=== PATIENT | male | born 1935 | race Caucasian/White ===

== ENCOUNTER 2019-11-14 18:23 | Emergency (ER) | payer MEDICARE, OTHER, SELFPAY ==
--- NOTE | 2019-11-14 18:30 | XR_ITS ---
WS: [id number] PORTABLE CHEST HISTORY: cp COMPARISON: 12/13/2014 LEFT subclavian pacer. Hyperexpanded lungs from emphysema. No pneumonia, normal vasculature. No pleural effusion or pneumoth orax. Cardiac size: Normal. Mediastinum/Aorta: Mild atherosclerosis aorta. Prior LEFT rotator cuff repair. XR/XR chest 1V portable [id number] IMPRESSION: Chronic emphysema and mild atherosclerosis aorta. No acute cardiopulmonary dise ase.
--- NOTE | 2019-11-14 18:30 | ECG_ITS ---
Measurements Intervals [place] Rate: 75 P: 239 IA: 175 QRS: -48 QRSD: 117 T: 81 QT: 373 QTc: 418 ELECTRONIC ATRIAL PACEMAKER LEFT ANTERIOR FASCICULAR BLOCK [QRS AXIS <= -45, QR IN I, RS IN II] NONSPECIFIC ST & T-WAVE ABNORMALITY Compared to ECG 12/13/2014 07:35:22 Left anterior fascicular block now present T-wave abnormality now present Left-axis deviation no longer present Myocardial infarct finding no longer present Electronically Signed On 11-15-2019 16:29:15 CABLE STRETCHER AND TESTER by Jean Castillo M.D. [id number]
[2019-11-14 18:37] VITALS: BP 163/88; PULSE 78; RESP 16; TEMP 36.6; O2SAT 100; BMI 20.5
[2019-11-14 19:23] LABS: Basophils # 0.1 10^3/uL (0.0-0.1); Basophils % 0.8 %; Eosinophils # 0.4 10^3/uL (0.0-0.8); Eosinophils % 3.9 %; Hematocrit 43.3 % (42.0-52.0); Hemoglobin 14.4 g/dL (11.7-16.6); Lymphocytes # 3.1 10^3/uL (0.8-4.8); Mean Corpuscular HGB Conc 33.3 g/dL (30.0-36.0); Mean Corpuscular Hemoglobin 29.8 pg (28.0-34.0); Mean Corpuscular Volume 89.6 fL (80-94); Mean Platelet Volume 11.9 fL (7.4-10.4); Neutrophils # 6.1 10^3/uL (1.8-7.7); Nucleated Red Blood Cells % 0 %; Platelet Count 163 10^3/cmm (130-400); Red Blood Count 4.83 10^6/uL (4.1-5.3); Red Cell Distribution Width 12.7 % (12.1-15.1); White Blood Count 10.7 10^3/uL (4.0-10.0)
[2019-11-14 19:35] LABS: Alanine Aminotransferase 21 U/L (0-41); Albumin Level 4.3 g/dL (3.5-5.2); Alkaline Phosphatase 88 IU/L (40-130); Blood Urea Nitrogen 23 mg/dL (8-23); Calcium 9.7 mg/dL (8.5-10.5); Carbon Dioxide 23 mmol/L (22-29); Chloride 98 mmol/L (98-107); Globulin 2.8 g/dL (1.3-4.6); Glucose 175 mg/dL (65-115); Sodium 136 mmol/L (136-145); Total Bilirubin 0.3 mg/dL (0.15-1.2); Total Protein 7.1 g/dL (6.6-8.7); Troponin(5th) Baseline 16 ng/mL (0-15)
[2019-11-14 19:43] LABS: Slide Review Slide Review Perform
[2019-11-14 20:01] LABS: Aspartate Amino Transferase 27 U/L (0-40)
--- NOTE | 2019-11-14 20:30 | ECG_ITS ---
Measurements Intervals [place] Rate: 76 P: 257 ID: [id number] QRS: -56 QRSD: 122 T: 86 QT: 385 QTc: 435 ELECTRONIC ATRIAL PACEMAKER LEFT ANTERIOR FASCICULAR BLOCK [QRS AXIS <= -45, QR IN I, RS IN II] Compared to ECG 12/13/2014 07:35:22 Left anterior fascicular block now present Left-axis deviation no longer present Myocardial infarct finding no longer present Electronically Signed On 11-15-2019 16:35:08 TRIMMER MACHINE by Jean Castillo M.D. [email or web address]
--- NOTE | 2019-11-14 20:41 | ED_ITS ---
Entered by Orquidea Badillo, acting as scribe for Masha Gee Nov 14, 2019 18:23 HPI - Chest Pain General: Chief Complaint: Chest Pain Stated Complaint: cp Time Seen by Provider: 11/14/19 20:08 Source: patient Mode of arrival: ambulatory Limitations: no limitations History of Present Illness: HPI narrative: 84 yo m came to the er for chest pain. Onset was today. Pt states that they have had sharp pains lasting 1 sec at a time. The pains do not last any longer this. He has no associated radiation, aggravating or alleviating factors, nausea or vomiting, shortness of breath, diaphoresis, palpitations, syncope or near syncope. The patient states it has been approximately 2 hours since she had a pain. He denies any eliciting factors. MD complaint: chest pain Severity: mild Quality: sharp Associated symptoms: Deny abdominal pain, diaphoresis, dyspnea, fever(s), nausea, palpitations, syncope or vomiting Review of Systems General: Reports: other (negative unless marked) Const: Denies: fever, chills, body aches, fatigue, malaise or diaphoresis Eyes: Denies: change in vision or blurry vision ENMT: Denies: throat pain, painful swallowing, hoarseness, ear pain, ear discharge, Change in hearing or nasal discharge Card: Reports: chest pain (See HPI); Denies: palpitations, irregular heart rhythm, syncope, pre-syncope, shortness of breath on exertion or shortness of breath when lying down Resp: Denies: shortness of breath, productive cough, non-productive cough, wheezing, coughing up blood or chest congestion GI: Denies: abdominal pain, nausea, vomiting, vomiting blood, coffee grounds in vomit, diarrhea, constipation, cramping, blood in stool or black tarry stool : Denies: flank pain, difficulty urinating, painful urination, urinary frequency, urinary urgency, decreased urine ouput, urinary incontinence or blood in urine Musc: Denies: neck pain, back pain, extremity pain, extremity swelling, joint pain, joint swelling, joint warmth or joint stiffness Skin/Breast: Denies: rash, skin tenderness or yellow skin Neuro: Denies: headache, numbness in extremities, weakness in extremities, changes in sensation, lack of coordination, difficulty walking, dizziness, vertigo or confusion Endo: Denies: excessive thirst, tired all the time, cold intolerance, excessive sweating, flushing or hot flashes Tyshawn/Lymph: Denies: easy bruising, easy bleeding, petechiae or enlarged lymph nodes All/Imm: Denies: hives, throat swelling, tongue swelling, facial swelling or acute wheezing PFSH ED PFSH: Statuses (acute, chronic, etc) shown below reflect problem list status as previously entered and may not be historically accurate Medical History (Updated 11/14/19 @ 21:39 by Masha Gee) Diabetes (Acute) Heart block (Acute) Hyperlipidemia (Acute) Hypertension (Acute) Peptic ulcer disease (Acute) Social History Smoking and tobacco status: former smoker Physical Exam Const: COMMON NORMALS: no apparent distress, oriented x3, no limitations, healthy appearing and well nourished EXAM LIMITATIONS: no altered mental status GENERAL APPEARANCE: cooperative, well kempt and well developed ORIENTATION/CONSCIOUSNESS: Yes awake HENMT: COMMON NORMALS: normocephalic, head/scalp atraumatic, hearing grossly normal bilaterally, external ears normal, EAC's normal, external nose normal and moist oral mucous membranes HEAD & SCALP: normal to inspection, normocephalic and atraumatic FACE & SINUS: normal facial exam and face symmetric NOSE: external nose normal and nares normal EXTERNAL EAR: Yes external ears normal EXTERNAL AUDITORY CANAL: EAC's normal MOUTH: oral and palatal mucosa normal and tongue normal Eye: COMMON NORMALS: PERRL, EOMs intact bilaterally, conjunctivae normal and no scleral icterus GENERAL EYE: normal appearance of both eyes and normal light reflex CONJUNCTIVA: Yes conjunctivae normal SCLERA: sclerae normal CORNEA: Yes corneas normal PUPIL: Yes PERRL DIRECT OPHTHALMOSCOPY: Yes normal light reflex Neck/C-Spine: COMMON NORMALS: full ROM, no lymphadenopathy, supple, no meningeal signs and no JVD GENERAL: Yes normal visual inspection and Yes trachea midline CERVICAL SPINE: Yes cervical ROM normal Chest: COMMONS NORMALS: inspection of chest normal and palpation of chest normal Resp: COMMON NORMALS: normal respiratory effort, no retractions, no use of accessory muscles and clear to auscultation bilaterally EFFORT & INSPECTION: Yes able to speak in complete sentences AUSCULTATION: clear to auscultation bilaterally Cardio: COMMON NORMALS: no JVD, regular rate, regular rhythm, S1 normal heart sound, S2 normal heart sound, no gallops, no clicks, no murmurs and no rub JUGULAR VENOUS DISTENTION: no JVD RATE: regular rate RHYTHM: regular rhythm HEART SOUNDS: S1 normal and S2 normal GI: COMMON NORMALS: soft to palpation, non-tender, no hepatosplenomegaly and no masses INSPECTION: Yes normal to inspection PALPATION: Yes soft and Yes no hepatosplenomegaly : COMMON NORMALS: Yes no CVA tenderness BLADDER/KIDNEY EXAM: Yes no CVA tenderness Back/Pelvis: COMMON NORMALS: no CVA tenderness, thoracic and lumbar spine normal to inspection, no thoracic nor lumbar tenderness and thoraco-lumbar ROM normal Extremity: COMMON NORMALS: normal to inspection, full ROM, normal capillary refill, no joint enlargement, no clubbing, cyanosis or edema and no calf tenderness Neuro: COMMON NORMALS: oriented x3, CN's II-XII intact bilaterally, moves all extremities, no focal motor deficits and no sensory deficits noted MENINGEAL SIGNS: Yes no meningeal signs Psych: COMMON NORMALS: mental status grossly normal, thought process normal, cooperative, affect normal, speech normal and activity/motor behavior normal APPEARANCE: Yes well kempt SPEECH: Yes normal speech THOUGHT PROCESS: nor mal thought process Skin: COMMON NORMALS: no rashes or lesions noted, skin turgor normal, no jaundice, no petechiae and no mottling GENERAL SKIN EXAM: no rashes or lesions noted and turgor normal Course Vital Signs: Vital signs: Vital Signs Temperature 97.9 F 11/14/19 18:37 Pulse Rate 60 11/14/19 21:24 Respiratory Rate 18 11/14/19 21:24 Blood Pressure 124/73 11/14/19 21:24 Pulse Oximetry 96 11/14/19 21:24 MDM - Chest Pain MDM Narrative: Medical decision making narrative: Mr. Dewey is a very nice 84-year-old male who comes in complaining of intermittent sharp chest pains lasting 1 second each. The symptoms lasted intermittently over approximately 30 minutes with a half a dozen to a dozen episodes at most. Nothing made them better or worse. He had no other cardiac/aortic dissection or pulmonary embolism like associated symptoms to go along with these pains. Patient's x-ray is normal I see no evidence of pneumothorax, he does not describe his pain consistent with an aortic dissection or pulmonary embolism. The patient's symptoms do not sound like acute coronary syndrome. The patient has a heart score of 4. Because of this nonetheless I have offered admission but he declines. I see no sign of any other acute life or limb threatening illness at this time although the differential is long I believe the life threats have been ruled out. The patient does understand that if he changes his mind he is free to return but at this time he wants to be discharged and he will decide if he wants to follow-up with his doctor for further testing. Patient denies having any pain in several hours even before he left his house the symptoms have resolved. Lab Data: Attestation: I reviewed the patient's lab results. Labs: Lab Results 11/14/19 11/14/19 11/14/19 Range/Units 19:03 19:03 19:03 WBC 10.7 H (4.0-10.0) 10^3/ uL RBC 4.83 (4.1-5.3) 10^6/u L Hgb 14.4 (11.7-16.6) g/dL Hct 43.3 (42.0-52.0) % MCV 89.6 (80-94) fL MCH 29.8 (28.0-34.0) pg MCHC 33.3 (30.0-36.0) g/dL RDW 12.7 (12.1-15.1) % Plt Count 163 (130-400) 10^3/c mm MPV 11.9 H (7.4-10.4) fL Neut % (Auto) 57.0 % Lymph % (Auto) 29.0 % Hand % (Auto) 9.0 % Eos % (Auto) 3.9 % Baso % (Auto) 0.8 % Neut # (Auto) 6.1 (1.8-7.7) 10^3/u L Lymph # (Auto) 3.1 (0.8-4.8) 10^3/u L Hand # (Auto) 1.0 H (0.2-0.9) 10^3/u L Eos # (Auto) 0.4 (0.0-0.8) 10^3/u L Baso # (Auto) 0.1 (0.0-0.1) 10^3/u L Nucleated RBC % (a uto) 0 % Nucleated RBCs # 0.0 /100WBC Sodium 136 (136-145) mmol/L Potassium 4.0 (3.5-5.1) mmol/L Chloride 98 (98-107) mmol/L Carbon Dioxide 23 (22-29) mmol/L Anion Gap 19.0 (5-19) BUN 23 (8-23) mg/dL Creatinine 1.3 H (0.7-1.2) mg/dL Glucose 175 H (65-115) mg/dL Calcium 9.7 (8.5-10.5) mg/dL Total Bilirubin 0.3 (0.15-1.2) mg/dL AST 27 (0-40) U/L ALT 21 (0-41) U/L Alkaline Phosphata se 88 (40-130) IU/L Troponin T Baselin e 16 H (0-15) ng/mL Troponin T 120 Min [place] (0-15) ng/mL Delta Troponin T (0-10) ABS# Total Protein 7.1 (6.6-8.7) g/dL Albumin 4.3 (3.5-5.2) g/dL Globulin 2.8 (1.3-4.6) g/dL 11/14/19 Range/Units 20:28 WBC (4.0-10.0) 10^3/ uL RBC (4.1-5.3) 10^6/u L Hgb (11.7-16.6) g/dL Hct (42.0-52.0) % MCV (80-94) fL MCH (28.0-34.0) pg MCHC (30.0-36.0) g/dL RDW (12.1-15.1) % Plt Count (130-400) 10^3/c mm MPV (7.4-10.4) fL Neut % (Auto) % Lymph % (Auto) % Hand % (Auto) % Eos % (Auto) % Baso % (Auto) % Neut # (Auto) (1.8-7.7) 10^3/u L Lymph # (Auto) (0.8-4.8) 10^3/u L Hand # (Auto) (0.2-0.9) 10^3/u L Eos # (Auto) (0.0-0.8) 10^3/u L Baso # (Auto) (0.0-0.1) 10^3/u L Nucleated RBC % (a uto) % Nucleated RBCs # /100WBC Sodium (136-145) mmol/L Potassium (3.5-5.1) mmol/L Chloride (98-107) mmol/L Carbon Dioxide (22-29) mmol/L Anion Gap (5-19) BUN (8-23) mg/dL Creatinine (0.7-1.2) mg/dL Glucose (65-115) mg/dL Calcium (8.5-10.5) mg/dL Total Bilirubin (0.15-1.2) mg/dL AST (0-40) U/L ALT (0-41) U/L Alkaline Phosphata se (40-130) IU/L Troponin T Baselin e (0-15) ng/mL Troponin T 120 Min [place] 17.52 H (0-15) ng/mL Delta Troponin T 1.52 (0-10) ABS# Total Protein (6.6-8.7) g/dL Albumin (3.5-5.2) g/dL Globulin (1.3-4.6) g/dL Imaging Data^: CXR: My impression: No acute cardiopulmonary findings. Pacemaker present and unchanged from previous. EKG Data^: EKG 1: EKG interpretation date: 11/14/19 EKG interpretation time: 18:47 Interpretation: Atrial paced rhythm at 76 beats a minute, nonspecific T wave inversions in aVL only, otherwise unremarkable. EKG 2: EKG interpretation date: 11/14/19 EKG interpretation time: 20:08 Interpretation: Atrial paced rhythm at 75 beats a minute, nonspecific T wave inversions in aVL, no other acute findings, unchanged from previous. Discharge Plan Discharge Patient Disposition: Home, Self-Care Clinical Impression: Chest pain Qualifiers: Chest pain type: other chest pain Qualified Code(s): R07.89 - Other chest pain Condition: Stable Discharge Orders: Discharge Order (Routine); Ordered 11/14/19 Ordered By: Masha Gee Referrals: Jean Castillo MD [Physician] - 1-3 days Mortensen,Jorge Taurus, MD [Primary Care Provider] - Discharge Diet: Usual diet Discharge Activity: Increase activity as tolerated Patient Instructions: Chest Pain (ED) Activity Restrictions/Additional Instructions: Please return to the ER immediately for any of the signs or symptoms listed on your discharge instruction sheets, worsening/changing of your symptoms, you are not getting better as quickly as expected, or for ANY other cause or concerns. You have been offered further evaluation and care including admission to the hospital for further blood tests and a stress test to definitively rule out heart disease but you have declined. If you change your mind or your symptoms change/worsen in any way you are more than welcome to return to the ER for recheck and further evaluation and care. Be certain to follow-up with your doctor as soon as possible for recheck. Discharge Date/Time: 11/14/19 21:24 Coding Level of Care Code ED Desktop Technician for Chg Fwd Exam Problem Focused The documentation recorded by the Justino darby Stephanie Lyn, accurately reflects the service I personally performed and the decisions made by , Masha Gee Nov 14, 2019 18:23
[2019-11-14 20:47] LABS: Troponin 5 2HR 17.52 ng/mL (0-15); Troponin 5 2HR Delta 1.52 ABS# (0-10)
[2019-11-14 21:24] VITALS: BP 124/73; PULSE 60; RESP 18; O2SAT 96
== END 2019-11-14 21:24 | disposition home or self-care (01) ==
PROVIDERS: Emergency Medicine; Emergency Provider Emergency Medicine; Family Provider Family Medicine; PCP Family Medicine
DX: R07.9 Chest pain, unspecified (principal); E11.9 Type 2 diabetes mellitus without complications; E78.5 Hyperlipidemia, unspecified; I10 Essential (primary) hypertension; Z87.891 Personal history of nicotine dependence; Z95.0 Presence of cardiac pacemaker
CPT/HCPCS: 36415; 71045; 80053; 84484; 85025; 93005; 99281; 99284

== ENCOUNTER 2021-04-07 01:51 | Emergency (ER) | payer MEDICARE, OTHER, SELFPAY ==
--- NOTE | 2021-04-07 01:53 | XRR_ITS ---
PROCEDURE INFORMATION: Exam: XR Chest Exam date and time: 04/07/2021 1:53 AM Age: 86 years old Clinical indication: Sternal or substernal pain; Prior surgery; Surgery date: 6+ months; Surgery type: Pacemaker; Additional info: Cp TECHNIQUE: Imaging protocol: XR of the chest. Views: 1 view. COMPARISON: [place] XR chest 2V* [id number] 03/12/2021 3:29 PM FINDINGS: Tubes, catheters and devices: Stable left pacemaker. Lungs: Unremarkable. No consolidation. Pleural spaces: Unremarkable. No pleural effusion. No pneumothorax. Heart/Mediastinum: Unremarkable. No cardiomegaly. Bones/joints: Unremarkable. XR/XR chest 1V portable [id number] IMPRESSION: No acute findings.
[2021-04-07 02:06] VITALS: BP 114/70; PULSE 84; RESP 18; TEMP 37.1; O2SAT 95; BMI 20.7
--- NOTE | 2021-04-07 02:13 | ED_ITS ---
HPI - Chest Pain General: Chief Complaint: Chest Pain Stated Complaint: chest pain Time Seen by Provider: 04/07/21 01:53 Mode of arrival: ambulatory Limitations: no limitations History of Present Illness: HPI narrative: 86-year-old male states he woke up roughly at 1 AM with a sharp pain in the center of his chest. He states that the pain lasted seconds and then resolved immediately. He denies any pain currently. He denies any shortness of breath or nausea with the pain. Patient has no complaints at this time. Denies any worsening improving factors. Associated symptoms: Deny abdominal pain, dyspnea, fever(s), nausea or vomiting Review of Systems Const: Denies: fever(s), chills, body aches or change in appetite Eyes: Denies: blurry vision or eye discomfort ENMT: Denies: throat pain or dental pain Card: Reports: chest pain Resp: Denies: dyspnea GI: Denies: abdominal pain, nausea, vomiting or diarrhea : Denies: dysuria Musc: Denies: neck pain or back pain Skin/Breast: Denies: rash Neuro: Denies: headache(s) Psych: Denies: depression Tyshawn/Lymph: Denies: easy bruising All/Imm: Denies: urticaria PFSH ED PFSH: Medical History (Updated 04/07/21 @ 04:39 by Norberto Damon MD) ROSANGELA inhibitor intolerance Angioedema Chest pain Diabetes Heart block Hyperlipidemia Hypertension Pacemaker Peptic ulcer disease Sick sinus syndrome Sleep apnea Social History Smoking and tobacco status: former smoker Household members: spouse Marital status: service: No Current occupational status: retired Physical Exam Const: COMMON NORMALS: no acute distress, patient oriented x3 and healthy appearing HENMT: COMMON NORMALS: normocephalic and atraumatic HEAD & SCALP: normocephalic and atraumatic Eye: COMMON NORMALS: Equal, round and reactive pupils present and EOMs intact bilaterally PUPIL: Yes Equal, round and reactive pupils present Neck/C-Spine: COMMON NORMALS: full ROM and supple Chest: COMMONS NORMALS: normal inspection of the chest and normal palpation of entire chest wall Resp: COMMON NORMALS: normal respiratory effort, No retractions, No use of accessory muscles and clear to auscultation bilaterally AUSCULTATION: clear to auscultation bilaterally Cardio: COMMON NORMALS: regular rate, regular rhythm and No murmurs present (Cardio) RATE: regular rate RHYTHM: regular rhythm GI: COMMON NORMALS: Normal to inspection, nondistended, normoactive bowel sounds present, Soft to palpation, non-tender and no masses PALPATION: Yes Soft to palpation Extremity: COMMON NORMALS: normal to inspection and full ROM Neuro: COMMON NORMALS: patient oriented x3, moves all extremities and no focal motor deficits Psych: COMMON NORMALS: mental status grossly normal, Normal thought process present and cooperative THOUGHT PROCESS: Normal thought process present Skin: COMMON NORMALS: no rashes or lesions noted and no wounds GENERAL SKIN EXAM: no rashes or lesions noted Course Vital Signs: Vital signs: Vital Signs Temperature 98.7 F 04/07/21 02:06 Pulse Rate 76 04/07/21 04:22 Respiratory Rate 18 04/07/21 04:22 Blood Pressure 107/58 04/07/21 04:22 Pulse Oximetry 94 04/07/21 04:22 MDM - Chest Pain MDM Narrative: Medical decision making narrative: Patient presents with chest pain that only lasted seconds and is atypical in nature. His EKGs and troponins here are normal. His x-ray is normal as well. He is stable for discharge and is to follow-up with his PCP and return if worsening. Lab Data: Labs: Lab Results 04/07/21 04/07/21 04/07/21 Range/Units 02:24 02:24 02:24 WBC 9.3 (4.0-10.0) 10^3/ uL RBC 4.37 (4.1-5.3) 10^6/u L Hgb 13.2 (11.7-16.6) g/dL Hct 40.2 L (42.0-52.0) % MCV 92.0 (80-94) fL MCH 30.2 (28.0-34.0) pg MCHC 32.8 (30.0-36.0) g/dL RDW 12.8 (12.1-15.1) % Plt Count 160 (130-400) 10^3/c mm MPV 10.7 H (7.4-10.4) fL Neut % (Auto) 75.7 % Lymph % (Auto) 11.8 % [place] % (Auto) 10.2 % Eos % (Auto) 1.0 % Baso % (Auto) 0.8 % Neut # (Auto) 7.01 (1.8-7.7) 10^3/u L Lymph # (Auto) 1.1 (0.8-4.8) 10^3/u L [place] # (Auto) 0.9 (0.2-0.9) 10^3/u L Eos # (Auto) 0.1 (0.0-0.8) 10^3/u L Baso # (Auto) 0.1 (0.0-0.1) 10^3/u L Nucleated RBC % (a uto) 0 % Nucleated RBCs # 0.0 /100WBC PT 13.20 (12.1-14.9) SECO NDS INR 0.98 (0.8-1.2) Sodium 135 L (136-145) mmol/L Potassium 4.1 (3.5-5.1) mmol/L Chloride 99 (98-107) mmol/L Carbon Dioxide 22 (22-29) mmol/L Anion Gap 18.1 (5-19) BUN 21 (8-23) mg/dL Creatinine 1.2 (0.7-1.2) mg/dL GFR Calculation Not Reportable Glucose 302 H (65-115) mg/dL Calculated Osmolal ity 294 (285-295) mOsm/k g Calcium 8.6 (8.5-10.5) mg/dL Total Bilirubin 0.5 (0.15-1.2) mg/dL AST 18 (0-40) U/L ALT 19 (0-41) U/L Alkaline Phosphata se 106 (40-130) IU/L Troponin T Baselin e (0-15) ng/L Troponin T 120 Min [place] (0-15) ng/L Delta Troponin T (0-10) ABS# Total Protein 6.0 L (6.6-8.7) g/dL Albumin 4.1 (3.5-5.2) g/dL Globulin 1.9 (1.3-4.6) g/dL 04/07/21 04/07/21 Range/Units 02:24 04:01 WBC (4.0-10.0) 10^3/ uL RBC (4.1-5.3) 10^6/u L Hgb (11.7-16.6) g/dL Hct (42.0-52.0) % MCV (80-94) fL MCH (28.0-34.0) pg MCHC (30.0-36.0) g/dL RDW (12.1-15.1) % Plt Count (130-400) 10^3/c mm MPV (7.4-10.4) fL Neut % (Auto) % Lymph % (Auto) % [place] % (Auto) % Eos % (Auto) % Baso % (Auto) % Neut # (Auto) (1.8-7.7) 10^3/u L Lymph # (Auto) (0.8-4.8) 10^3/u L [place] # (Auto) (0.2-0.9) 10^3/u L Eos # (Auto) (0.0-0.8) 10^3/u L Baso # (Auto) (0.0-0.1) 10^3/u L Nucleated RBC % (a uto) % Nucleated RBCs # /100WBC PT (12.1-14.9) SECO NDS INR (0.8-1.2) Sodium (136-145) mmol/L Potassium (3.5-5.1) mmol/L Chloride (98-107) mmol/L Carbon Dioxide (22-29) mmol/L Anion Gap (5-19) BUN (8-23) mg/dL Creatinine (0.7-1.2) mg/dL GFR Calculation Glucose (65-115) mg/dL Calculated Osmolal ity (285-295) mOsm/k g Calcium (8.5-10.5) mg/dL Total Bilirubin (0.15-1.2) mg/dL AST (0-40) U/L ALT (0-41) U/L Alkaline Phosphata se (40-130) IU/L Troponin T Baselin e 14 (0-15) ng/L Troponin T 120 [address] [place] 13.42 (0-15) ng/L Delta Troponin T -0.58 L (0-10) ABS# Total Protein (6.6-8.7) g/dL Albumin (3.5-5.2) g/dL Globulin (1.3-4.6) g/dL Imaging Data^: CXR: Attestation: I personally reviewed and interpreted this imaging study as follows: My impression: no acute abnormality EKG Data^: EKG 1: Attestation: I personally reviewed and interpreted this EKG as follows: EKG interpretation date: 04/07/21 EKG interpretation time: 02:03 Interpretation: nsr hr [address] or t wave abnormalities qrs 118 qtc 399 EKG 2: Attestation: I personally reviewed and interpreted this EKG as follows: EKG interpretation date: 04/07/21 EKG interpretation time: 03:51 Interpretation: nsr hr [address] or t wave abnormalities qrs 125 qtc 407 Discharge Plan Discharge Patient Disposition: Home Clinical Impression: Chest pain Qualifiers: Chest pain type: unspecified Qualified Code(s): R07.9 - Chest pain, unspecified Condition: Stable Prescriptions: No Action losartan 100 mg tablet 100 mg PO DAILY RF: 0 omeprazole 20 mg capsule,delayed release(DR/EC) 20 mg PO DAILY RF: 0 garlic 1,000 mg capsule 1,000 mg PO DAILY RF: 0 calcium carbonate 600 mg calcium (1,500 mg) tablet 600 mg PO DAILY RF: 0 Intrinsi M69-Cadfba 500-20-800 mcg-mg-mcg tablet PO RF: 0 spironolacton-hydrochlorothiaz 25-25 mg tablet 1 tab PO DAILY RF: 0 alpha lipoic acid 200 mg capsule 200 mg PO DAILY RF: 0 aspirin [Aspir-81] 81 mg tablet,delayed release (DR/EC) 81 mg PO DAILY RF: 0 simvastatin 10 mg tablet 10 mg PO DAILY Qty: 90 RF: 0 Discharge Orders: Discharge ED (Routine); Ordered 04/07/21 Ordered By: Norberto Damon Referrals: Jorge Mortensen MD [Primary Care Provider] - 1-3 days Discharge Diet: Advance as tolerated Discharge Activity: Resume usual activity Patient Instructions: Chest Pain (ED) Coding Level of Care Code ED Academic Department Chair for Chg Fwd Exam Comprehensive
[2021-04-07 02:26] VITALS: BP 119/69; PULSE 84; RESP 17; O2SAT 94
[2021-04-07 02:42] LABS: Basophils # 0.1 10^3/uL (0.0-0.1); Basophils % 0.8 %; Eosinophils # 0.1 10^3/uL (0.0-0.8); Hematocrit 40.2 % (42.0-52.0); Hemoglobin 13.2 g/dL (11.7-16.6); Lymphocytes # 1.1 10^3/uL (0.8-4.8); Lymphocytes % 11.8 %; Mean Corpuscular HGB Conc 32.8 g/dL (30.0-36.0); Mean Corpuscular Hemoglobin 30.2 pg (28.0-34.0); Mean Platelet Volume 10.7 fL (7.4-10.4); Monocytes # 0.9 10^3/uL (0.2-0.9); Monocytes % 10.2 %; Neutrophils # 7.01 10^3/uL (1.8-7.7); Neutrophils % 75.7 %; Nucleated Red Blood Cells % 0 %; Platelet Count 160 10^3/cmm (130-400); Red Blood Count 4.37 10^6/uL (4.1-5.3); Red Cell Distribution Width 12.8 % (12.1-15.1); White Blood Count 9.3 10^3/uL (4.0-10.0)
[2021-04-07 02:43] LABS: INR 0.98 (0.8-1.2)
[2021-04-07 02:52] LABS: Albumin Level 4.1 g/dL (3.5-5.2); Potassium 4.1 mmol/L (3.5-5.1); Troponin(5th) Baseline 14 ng/L (0-15)
[2021-04-07 03:03] LABS: Alanine Aminotransferase 19 U/L (0-41); Alkaline Phosphatase 106 IU/L (40-130); Anion Gap 18.1 (5-19); Aspartate Amino Transferase 18 U/L (0-40); Blood Urea Nitrogen 21 mg/dL (8-23); Calcium 8.6 mg/dL (8.5-10.5); Carbon Dioxide 22 mmol/L (22-29); Chloride 99 mmol/L (98-107); Globulin 1.9 g/dL (1.3-4.6); Glucose 302 mg/dL (65-115); Osmolality Calculated 294 mOsm/kg (285-295); Sodium 135 mmol/L (136-145); Total Bilirubin 0.5 mg/dL (0.15-1.2)
[2021-04-07 03:09] VITALS: BP 105/57; PULSE 76; RESP 21; O2SAT 94
--- NOTE | 2021-04-07 03:53 | ECG_ITS ---
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 Measurements Intervals [place] Rate: 71 P: 41 UT: 162 QRS: -53 QRSD: 125 T: 61 QT: 384 QTc: 419 Interpretive Statements SINUS RHYTHM WITH SINUS ARRHYTHMIA LEFT ANTERIOR FASCICULAR BLOCK [QRS AXIS <= -45, QR IN I, RS IN II] Compared to ECG 11/14/2019 20:08:28 Atrial-paced complex(es) or rhythm no longer present T-wave abnormality no longer present Electronically Signed On 04-08-2021 0:49:49 CDT by Deirdre Cedeno M.D. [id number]
[2021-04-07 04:22] VITALS: BP 107/58; PULSE 76; RESP 18; O2SAT 94
[2021-04-07 04:31] LABS: Troponin 5 2HR 13.42 ng/L (0-15)
[2021-04-07 04:38] LABS: Troponin 5 2HR Delta -0.58 ABS# (0-10)
[2021-04-07 04:50] VITALS: BP 110/55; PULSE 71; RESP 16; O2SAT 95
== END 2021-04-07 04:51 | disposition home or self-care (01) ==
PROVIDERS: Emergency Provider Emergency Medicine; PCP Family Medicine
DX: R07.9 Chest pain, unspecified (principal); Z79.82 Long term (current) use of aspirin; E11.9 Type 2 diabetes mellitus without complications; E78.5 Hyperlipidemia, unspecified; I10 Essential (primary) hypertension; Z95.0 Presence of cardiac pacemaker; Z87.891 Personal history of nicotine dependence
CPT/HCPCS: 71045; 80053; 84484; 85025; 85610; 93005; 99283

== ENCOUNTER 2021-04-10 06:03 | Outpatient (CLI) | payer MEDICARE, OTHER, SELFPAY ==
[2021-04-10 06:29] VITALS: BP 124/74; PULSE 82; RESP 15; TEMP 36.6; O2SAT 96; BMI 20.7
--- NOTE | 2021-04-10 06:35 | ED_ITS ---
HPI - General Adult General: Source: patient Mode of arrival: ambulatory Limitations: no limitations History of Present Illness: HPI narrative: Patient is here for Covid infusion. Patient diagnosed with Covid this week. Patient denies any shortness of breath or fever. complaint: Covid infusion Relieving factors: none Exacerbating factors: none Associated symptoms: Reports no associated symptoms; Deny chest pain, dyspnea, headache(s), nausea, rash, palpitations or vomiting Treatments prior to arrival: none Review of Systems Const: Denies: fever(s) or chills Eyes: Denies: change in vision ENMT: Denies: throat pain Card: Denies: chest pain or palpitations Resp: Denies: dyspnea or wheezing GI: Denies: abdominal pain, nausea or vomiting : Denies: flank pain Musc: Denies: neck pain or back pain Skin/Breast: Denies: rash or pruritus Neuro: Denies: headache(s) or numbness in extremities Psych: Denies: anxiety Tyshawn/Lymph: Denies: enlarged lymph nodes PFSH ED PFSH: Medical History ROSANGELA inhibitor intolerance Angioedema Chest pain Diabetes Heart block Hyperlipidemia Hypertension Pacemaker Peptic ulcer disease Sick sinus syndrome Sleep apnea Social History Smoking and tobacco status: former smoker Household members: spouse Marital status: service: No Current occupational status: retired Physical Exam Const: COMMON NORMALS: no acute distress, patient oriented x3, no limitations and well nourished GENERAL APPEARANCE: cooperative HENMT: COMMON NORMALS: normocephalic and atraumatic HEAD & SCALP: normocephalic and atraumatic FACE & SINUS: normal facial exam Eye: COMMON NORMALS: EOMs intact bilaterally Neck/C-Spine: COMMON NORMALS: full ROM, no lymphadenopathy, supple and no me ningeal signs GENERAL: Yes normal visual inspection Lymph: LYMPHATIC: no lymphadenopathy noted Chest: COMMONS NORMALS: normal inspection of the chest and normal palpation of entire chest wall CHEST: No Ecchymosis present and No rash Resp: COMMON NORMALS: normal respiratory effort, No retractions and clear to auscultation bilaterally EFFORT & INSPECTION: No respiratory distress AUSCULTATION: clear to auscultation bilaterally Cardio: COMMON NORMALS: regular rate, regular rhythm and Peripheral pulses 2+ throughout JUGULAR VENOUS DISTENTION: no JVD RATE: regular rate RHYTHM: regular rhythm PERIPHERAL PULSES: Peripheral pulses 2+ throughout GI: COMMON NORMALS: Normal to inspection, nondistended, normoactive bowel sounds present and non-tender : COMMON NORMALS: Yes no CVA tenderness BLADDER/KIDNEY EXAM: Yes no CVA tenderness Back/Pelvis: COMMON NORMALS: no CVA tenderness Extremity: COMMON NORMALS: normal to inspection, full ROM and capillary refill normal Neuro: COMMON NORMALS: patient oriented x3, CN's II-XII intact bilaterally, no focal motor deficits and no sensory deficits noted MENINGEAL SIGNS: Yes no meningeal signs Psych: COMMON NORMALS: mental status grossly normal and Normal thought process present THOUGHT PROCESS: Normal thought process present Skin: COMMON NORMALS: no rashes or lesions noted and no wounds GENERAL SKIN EXAM: no rashes or lesions noted Course Vital Signs: Vital signs: Vital Signs Temperature 97.9 F 04/10/21 06:29 Pulse Rate 82 04/10/21 06:29 Respiratory Rate 15 04/10/21 06:29 Blood Pressure 124/74 04/10/21 06:29 Pulse Oximetry 96 04/10/21 06:29 Discharge Plan Discharge Patient Disposition: Home Prescriptions: No Action losartan 100 mg tablet 100 mg PO DAILY RF: 0 omeprazole 20 mg capsule,delayed release(DR/EC) 20 mg PO DAILY RF: 0 garlic 1,000 mg capsule 1,000 mg PO DAILY RF: 0 calcium carbonate 600 mg calcium (1,500 mg) tablet 600 mg PO DAILY RF: 0 Intrinsi [id number]-Owfreg 500-20-800 mcg-mg-mcg tablet PO RF: 0 spironolacton-hydrochlorothiaz 25-25 mg tablet 1 tab PO DAILY RF: 0 alpha lipoic acid 200 mg capsule 200 mg PO DAILY RF: 0 aspirin [Aspir-81] 81 mg tablet,delayed release (DR/EC) 81 mg PO DAILY RF: 0 simvastatin 10 mg tablet 10 mg PO DAILY Qty: 90 RF: 0 Discharge Orders: Discharge Order (Routine); Ordered 04/10/21 Ordered By: Darwin Coronado Referrals: Jorge Mortensen MD [Primary Care Provider] - Activity: Increase activity as tolerated Patient Instructions: Viral Syndrome - Adult Activity Restrictions/Additional Instructions: Return if any problems. Coding Level of Care Code ED Vocational Coordinator for Miriam Smith
--- NOTE | 2021-04-10 07:16 | PC.NURSE ---
patient resting, no acute distress noted.
[2021-04-10 09:59] VITALS: BP 124/72; PULSE 68; RESP 18; TEMP 36.7; O2SAT 97
--- NOTE | 2021-04-10 10:01 | PC.NURSE ---
iv removed, patient tolerated well. patient denied any shortness of breath or pain.ambulated without difficulty
--- NOTE | 2021-04-15 13:12 | DCPLANNER ---
fountain manager had message that patient received the BAM infusion. fountain manager called patient at phone number [phone], unable to speak with patient at this time, a voicemail was left for patient to return trimming caser phone call.
== END 2021-04-10 06:04 | disposition home or self-care (01) ==
PROVIDERS: PCP Family Medicine; Visit Provider Nurse Practitioner
DX: U07.1 COVID-19 (principal)
CPT/HCPCS: 96365

== ENCOUNTER → 2022-01-08 09:36 | Outpatient (BNVA) | payer MEDICARE, OTHER, SELFPAY | PROVIDERS: PCP Family Medicine; Visit Provider Internal Medicine | DX: I49.5 Sick sinus syndrome (principal); Z95.0 Presence of cardiac pacemaker ==

== ENCOUNTER → 2022-04-23 09:14 | Outpatient (BNVA) | payer MEDICARE, OTHER, SELFPAY | PROVIDERS: PCP Family Medicine; Visit Provider Internal Medicine | DX: Z45.010 Encounter for checking and testing of cardiac pacemaker pulse generator [battery] (principal) | CPT/HCPCS: 93280 ==

== ENCOUNTER → 2022-06-09 15:03 | Outpatient (BNVA) | payer MEDICARE, OTHER, SELFPAY | PROVIDERS: PCP Family Medicine; Visit Provider Nurse Practitioner Family | DX: I10 Essential (primary) hypertension (principal); Z87.891 Personal history of nicotine dependence | CPT/HCPCS: 99213 ==

== ENCOUNTER 2022-07-16 16:49 | Emergency (ER) | payer MEDICARE, SELFPAY ==
[2022-07-16 17:17] VITALS: BP 154/79; PULSE 85; RESP 18; TEMP 36.4; O2SAT 100; BMI 20.9
[2022-07-16 18:10] LABS: Glucose Point of Care 279 mg/dL (70-110)
--- NOTE | 2022-07-16 18:48 | W.ED.GENADLT ---
HPI - General Adult General: Chief complaint: General Medical Stated complaint: Diabetic, high blood sugar Time Seen by Provider: 07/16/22 18:04 History of Present Illness: Patient is 87-year-old male with a history of type 2 diabetes who presents emergency room with concerns of hyperglycemia. Patient was getting his glucose checked earlier today and noticed that it was over 300. Patient tells me that she is he is unable to refill his subcu insulin this week because Rhina ran out of insulins. Patient told me that he has not been using insulin for last 2 days and his glucose has been running high. On arrival, she had a glucose of 279. Patient has no other focal complaints including nausea/vomiting, fever/chill, chest pain, shortness of breath, abdominal pain, dysuria/hematuria/polyuria, diarrhea/melena/hematochezia. Onset:earlier today Duration: ongoing Location:home Severity:moderate Associated symptoms: Deny chest pain, dyspnea, nausea, rash, palpitations or vomiting Review of Systems Const: Denies: fever(s) or chills Eyes: Denies: change in vision ENMT: Denies: mouth pain Card: Denies: chest pain or palpitations Resp: Denies: dyspnea or non-productive cough GI: Denies: abdominal pain, nausea, vomiting or diarrhea : Denies: dysuria Musc: Denies: extremity pain Skin/Breast: Denies: rash or new lesions Neuro: Denies: weakness in extremities Psych: Reports: other (Normal mood) Tyshawn/Lymph: Denies: easy bruising PFSH ED PFSH: Medical History ROSANGELA inhibitor intolerance Angioedema Chest pain Diabetes Heart block Hyperlipidemia Hypertension Pacemaker Peptic ulcer disease Sick sinus syndrome Sleep apnea Family History Mother Hypertension Social History Smoking and tobacco status: former smoker (1968) Alcohol intake: never Household members: spouse Marital status: service: No Current occupational status: retired Physical Exam Const: COMMON NORMALS: alert HENMT: COMMON NORMALS: atraumatic HEAD & SCALP: atraumatic MOUTH: moist mucous membranes not abnormal Eye: COMMON NORMALS: EOMs intact bilaterally and conjunctivae normal CONJUNCTIVA: Yes conjunctivae normal Neck/C-Spine: COMMON NORMALS: full ROM and supple Resp: COMMON NORMALS: normal respiratory effort and clear to auscultation bilaterally AUSCULTATION: clear to auscultation bilaterally Cardio: COMMON NORMALS: regular rate RATE: regular rate GI: COMMON NORMALS: Soft to palpation and non-tender PALPATION: Yes Soft to palpation Extremity: COMMON NORMALS: full ROM Neuro: SENSORIUM/ORIENTATION: Yes alert MOTOR EXAM: No Abnormal motor strength present and Other motor observations present (no focal motor deficits) Psych: COMMON NORMALS: speech normal SPEECH: Yes normal speech MOOD & AFFECT: Yes euthymic mood Course Vital Signs: Vital signs: Vital Signs Temperature 97.6 F 07/16/22 17:17 Pulse Rate 85 07/16/22 17:17 Respiratory Rate 18 07/16/22 17:17 Blood Pressure 154/79 07/16/22 17:17 Pulse Oximetry 100 07/16/22 17:17 Oxygen Delivery Me thod 07/16/22 17:17 MDM - General Adult Medical Decision Making Patient has a glucose of 279 today. Patient is hemodynamically stable without any focal complaints. The patient to check his glucose every 4 hours and to abstain from carbohydrates shows his glucose continues to be high. Patient is instructed to follow-up with normal pharmacy to reobtain insulin injections. Lab workup is unremarkable. Disposition: Discharge. Patient counseled regarding diagnostic impression, treatment plan. Patient given ED strict return precautions to return for continuation, worsening, or development of new symptoms. Instructed to f/u w/ PCP regarding symptoms today. Patient verbalized understanding. Lab Data : 07/16/22 18:36 07/16/22 18:36 Laboratory Results WBC 8.2 10^3/uL (4.0-10.0) 07/16/22 18:36 RBC 4.48 10^6/uL (4.1-5.3) 07/16/22 18:36 Hgb 13.6 g/dL (11.7-16.6) 07/16/22 18:36 Hct 41.1 % (42.0-52.0) L 07/16/22 18:36 MCV 91.7 fl (80-94) 07/16/22 18:36 MCH 30.4 pg (28.0-34.0) 07/16/22 18:36 MCHC 33.1 g/dL (30.0-36.0) 07/16/22 18:36 RDW 13.3 % (12.1-15.1) 07/16/22 18:36 Plt Count 204 10^3/cmm (130-400) 07/16/22 18:36 MPV 10.4 fL (7.4-10.4) 07/16/22 18:36 Neut % (Auto) 53.2 % 07/16/22 18:36 Lymph % (Auto) 34.5 % 07/16/22 18:36 [place] % (Auto) 8.1 % 07/16/22 18:36 Eos % (Auto) 3.3 % 07/16/22 18:36 Baso % (Auto) 0.7 % 07/16/22 18:36 Neut # (Auto) 4.38 10^3/uL (1.8-7.7) 07/16/22 18:36 Lymph # (Auto) 2.8 10^3/uL (0.8-4.8) 07/16/22 18:36 [place] # (Auto) 0.7 10^3/uL (0.2-0.9) 07/16/22 18:36 Eos # (Auto) 0.3 10^3/uL (0.0-0.8) 07/16/22 18:36 Baso # (Auto) 0.1 10^3/uL (0.0-0.1) 07/16/22 18:36 Nucleated RBC % (auto) 0 % 07/16/22 18:36 Nucleated RBCs # 0.0 /100WBC 07/16/22 18:36 Sodium 136 mmol/L (136-145) 07/16/22 18:36 Potassium 4.2 mmol/L (3.5-5.1) 07/16/22 18:36 Chloride 100 mmol/L (98-107) 07/16/22 18:36 Carbon Dioxide 26 mmol/L (22-29) 07/16/22 18:36 Anion Gap 14.2 (5-19) 07/16/22 18:36 BUN 17 mg/dL (8-23) 07/16/22 18:36 Creatinine 1.1 mg/dL (0.7-1.2) 07/16/22 18:36 GFR Calculation Not Reportable 07/16/22 18:36 POC Glucose 279 mg/dL (70-110) H 07/16/22 18:06 Calculated Osmolality 294 mOsm/kg (285-295) 07/16/22 18:36 Calcium 9.1 mg/dL (8.5-10.5) 07/16/22 18:36 Discharge Plan Discharge Patient Disposition: Home Clinical Impression: Hyperglycemia Condition: Stable Prescriptions: No Action losartan 100 mg tablet 100 mg PO DAILY omeprazole 20 mg capsule,delayed release(DR/EC) 20 mg PO DAILY garlic 1,000 mg capsule 1,000 mg PO DAILY calcium carbonate 600 mg calcium (1,500 mg) tablet 600 mg PO DAILY Intrinsi [id number]-[id number] 500-20-800 mcg-mg-mcg tablet PO spironolacton-hydrochlorothiaz 25-25 mg tablet 1 tab PO DAILY alpha lipoic acid 200 mg capsule 200 mg PO DAILY aspirin [Aspir-81] 81 mg tablet,delayed release (DR/EC) 81 mg PO DAILY simvastatin 10 mg tablet 10 mg PO DAILY Qty: 90 0RF Discharge Orders: Discharge ED (Routine); Ordered 07/16/22 Ordered By: Nicole Gibson Referrals: Jorge Mortensen MD [Primary Care Provider] - Discharge Diet: Advance as tolerated Discharge Activity: Increase activity as tolerated Activity Restrictions/Additional Instructions: Come back if you have any new or concerning issues. Please follow-up with your primary care provider for reassessment of your glucose. 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
[2022-07-16 18:53] LABS: Basophils # 0.1 10^3/uL (0.0-0.1); Basophils % 0.7 %; Eosinophils # 0.3 10^3/uL (0.0-0.8); Eosinophils % 3.3 %; Hematocrit 41.1 % (42.0-52.0); Hemoglobin 13.6 g/dL (11.7-16.6); Lymphocytes # 2.8 10^3/uL (0.8-4.8); Lymphocytes % 34.5 %; Mean Corpuscular HGB Conc 33.1 g/dL (30.0-36.0); Mean Corpuscular Hemoglobin 30.4 pg (28.0-34.0); Mean Corpuscular Volume 91.7 fl (80-94); Mean Platelet Volume 10.4 fL (7.4-10.4); Monocytes # 0.7 10^3/uL (0.2-0.9); Monocytes % 8.1 %; Neutrophils # 4.38 10^3/uL (1.8-7.7); Neutrophils % 53.2 %; Nucleated Red Blood Cells % 0 %; Platelet Count 204 10^3/cmm (130-400); Red Blood Count 4.48 10^6/uL (4.1-5.3); Red Cell Distribution Width 13.3 % (12.1-15.1); White Blood Count 8.2 10^3/uL (4.0-10.0)
[2022-07-16 18:59] LABS: Anion Gap 14.2 (5-19); Blood Urea Nitrogen 17 mg/dL (8-23); Calcium 9.1 mg/dL (8.5-10.5); Carbon Dioxide 26 mmol/L (22-29); Chloride 100 mmol/L (98-107); Glucose 291 mg/dL (65-115); Osmolality Calculated 294 mOsm/kg (285-295); Potassium 4.2 mmol/L (3.5-5.1); Sodium 136 mmol/L (136-145)
[2022-07-16 19:41] VITALS: BP 151/64; PULSE 63; RESP 18; O2SAT 96
== END 2022-07-16 19:43 | disposition home or self-care (01) ==
PROVIDERS: Emergency Provider Emergency Medicine; PCP Family Medicine
DX: E11.65 Type 2 diabetes mellitus with hyperglycemia (principal); Z79.82 Long term (current) use of aspirin; E78.5 Hyperlipidemia, unspecified; I10 Essential (primary) hypertension; Z95.0 Presence of cardiac pacemaker; Z87.891 Personal history of nicotine dependence
CPT/HCPCS: 36415; 36416; 80048; 82962; 85025; 99283

== ENCOUNTER 2022-08-12 21:33 | Emergency (ER) | payer MEDICARE, OTHER, SELFPAY ==
[2022-08-12 21:34] VITALS: BP 149/73; PULSE 81; RESP 18; TEMP 36.6; O2SAT 98; BMI 19.3
--- NOTE | 2022-08-12 21:43 | XRR_ITS ---
PROCEDURE INFORMATION: Exam: XR Chest Exam date and time: 08/12/2022 10:00 PM Age: 87 years old Clinical indication: Chest wall pain; Prior surgery; Surgery date: 6+ months; Surgery type: Lung; Additional info: Cp TECHNIQUE: Imaging protocol: Radiologic exam of the chest. Views: 1 view. COMPARISON: CR XR chest 1V portable [id number] 04/07/2021 2:38 AM FINDINGS: Tubes, catheters and devices: Left-sided pacemaker. Lungs: Unremarkable. No consolidation. Pleural spaces: Unremarkable. No pleural effusion. No pneumothorax. Heart/Mediastinum: Unremarkable. No cardiomegaly. Bones/joints: Unremarkable. XR/XR chest 1V portable [id number] IMPRESSION: Negative for infiltrate
--- NOTE | 2022-08-12 22:02 | W.ED.CHESTPA ---
HPI - Chest Pain General: Chief Complaint: Chest Pain Stated Complaint: cp Time Seen by Provider: 08/12/22 21:43 Source: patient Mode of arrival: ambulatory Limitations: no limitations History of Present Illness: 87-year-old male states that today has had 3 different episodes of sharp chest pain that lasted for seconds he states that folic heart beat hard for 1 to 2 seconds with a sharp pain and is resolved he denies any shortness of breath denies any nausea denies any worsening proving factors. Denies any pain currently denies any abdominal pain or vomiting. Associated symptoms: Deny abdominal pain, dyspnea, fever(s), nausea or vomiting Review of Systems Const: Denies: fever(s), chills, body aches or change in appetite Eyes: Denies: blurry vision or eye discomfort ENMT: Denies: throat pain or dental pain Card: Reports: chest pain Resp: Denies: dyspnea GI: Denies: abdominal pain, nausea, vomiting or diarrhea : Denies: dysuria Musc: Denies: neck pain or back pain Skin/Breast: Denies: rash Neuro: Denies: headache(s) Psych: Denies: depression Tyshawn/Lymph: Denies: easy bruising All/Imm: Denies: urticaria PFSH ED PFSH: Medical History (Updated 08/13/22 @ 01:11 by Norberto Damon MD) ROSANGELA inhibitor intolerance Angioedema Chest pain Diabetes Heart block Hyperlipidemia Hypertension Pacemaker Peptic ulcer disease Sick sinus syndrome Sleep apnea Family History Mother Hypertension Social History Smoking and tobacco status: former smoker (1968) Alcohol intake: never Household members: spouse Marital status: service: No Current occupational status: retired Physical Exam Const: COMMON NORMALS: no acute distress, patient oriented x3 and healthy appearing HENMT: COMMON NORMALS: normocephalic and atraumatic HEAD & SCALP: normocephalic and atraumatic Eye: COMMON NORMALS: Equal, round and reactive pupils present and EOMs intact bilaterally PUPIL: Yes Equal, round and reactive pupils present Neck/C-Spine: COMMON NORMALS: full ROM and supple Chest: COMMONS NORMALS: normal inspection of the chest and normal palpation of entire chest wall Resp: COMMON NORMALS: normal respiratory effort, No retractions, No use of accessory muscles and clear to auscultation bilaterally AUSCULTATION: clear to auscultation bilaterally Cardio: COMMON NORMALS: regular rate, regular rhythm and No murmurs present (Cardio) RATE: regular rate RHYTHM: regular rhythm GI: COMMON NORMALS: Normal to inspection, nondistended, normoactive bowel sounds present, Soft to palpation, non-tender and no masses PALPATION: Yes Soft to palpation Extremity: COMMON NORMALS: normal to inspection and full ROM Neuro: COMMON NORMALS: patient oriented x3, moves all extremities and no focal motor deficits Psych: COMMON NORMALS: mental status grossly normal, Normal thought process present and cooperative THOUGHT PROCESS: Normal thought process present Skin: COMMON NORMALS: no rashes or lesions noted and no wounds GENERAL SKIN EXAM: no rashes or lesions noted Course Vital Signs: Vital signs: Vital Signs Temperature 97.9 F 08/12/22 21:34 Pulse Rate 63 08/13/22 00:28 Respiratory Rate 15 08/13/22 00:28 Blood Pressure 123/64 08/13/22 00:28 Pulse Oximetry 97 08/13/22 00:28 Oxygen Delivery Me thod 08/13/22 00:28 MDM - Chest Pain Medical Decision Making Patient presents for chest pain atypical in nature he had short bursts of pain he is pain-free here EKG is all troponins are normal he is stable for discharge he is to follow-up with his PCP and return if worsening. Lab Data : 08/12/22 22:03 08/12/22 22:03 Radiology Impressions Chest X-Ray 08/12/22 21:43 IMPRESSION: Negative for infiltrate Laboratory Results WBC 9.3 10^3/uL (4.0-10.0) 08/12/22 22:03 RBC 4.59 10^6/uL (4.1-5.3) 08/12/22 22:03 Hgb 13.7 g/dL (11.7-16.6) 08/12/22 22:03 Hct 41.6 % (42.0-52.0) L 08/12/22 22:03 MCV 90.6 fl (80-94) 08/12/22 22:03 MCH 29.8 pg (28.0-34.0) 08/12/22 22:03 MCHC 32.9 g/dL (30.0-36.0) 08/12/22 22:03 RDW 12.9 % (12.1-15.1) 08/12/22 22:03 Plt Count 203 10^3/cmm (130-400) 08/12/22 22:03 MPV 10.0 fL (7.4-10.4) 08/12/22 22:03 Neut % (Auto) 55.4 % 08/12/22 22:03 Lymph % (Auto) 31.9 % 08/12/22 22:03 [place] % (Auto) 8.2 % 08/12/22 22:03 Eos % (Auto) 3.3 % 08/12/22 22: Baso % (Auto) 0.9 % 08/12/22 22: Neut # (Auto) 5.14 10^3/uL (1.8-7.7) 08/12/22 22: Lymph # (Auto) 3.0 10^3/uL (0.8-4.8) 08/12/22 22:03 [place] # (Auto) 0.8 10^3/uL (0.2-0.9) 08/12/22 22:03 Eos # (Auto) 0.3 10^3/uL (0.0-0.8) 08/12/22 22:03 Baso # (Auto) 0.1 10^3/uL (0.0-0.1) 08/12/22 22:03 Nucleated RBC % (auto) 0 % 08/12/22 22: Nucleated RBCs # 0.0 /100WBC 08/12/22 22:03 PT 13.90 SECONDS (12.1-14.9) 08/12/22 22:03 INR 1.04 (0.8-1.2) 08/12/22 22:03 Sodium 137 mmol/L (136-145) 08/12/22 22:03 Potassium 3.7 mmol/L (3.5-5.1) 08/12/22 22:03 Chloride 99 mmol/L (98-107) 08/12/22 22:03 Carbon Dioxide 26 mmol/L (22-29) 08/12/22 22:03 Anion Gap 15.7 (5-19) 08/12/22 22:03 BUN 19 mg/dL (8-23) 08/12/22 22:03 Creatinine 1.3 mg/dL (0.7-1.2) H 08/12/22 22:03 GFR Calculation Not Reportable 08/12/22 22:03 Glucose 152 mg/dL (65-115) H 08/12/22 22:03 Calculated Osmolality 289 mOsm/kg (285-295) 08/12/22 22:03 Calcium 9.5 mg/dL (8.5-10.5) 08/12/22 22:03 Total Bilirubin 0.4 mg/dL (0.15-1.2) 08/12/22 22:03 AST 20 U/L (0-40) 08/12/22 22:03 ALT 14 U/L (0-41) 08/12/22 22:03 Alkaline Phosphatase 72 U/L (40-130) 08/12/22 22:03 Troponin T Baseline 20 ng/L (0-15) H 08/12/22 22:03 Troponin T 120 Minute 17.45 ng/L (0-15) H 08/12/22 23:42 Delta Troponin T -2.55 ABS# (0-10) L 08/12/22 23:42 NT-Pro-B Natriuret Pep 53 pg/mL (0-450) 08/12/22 22:03 Total Protein 6.9 g/dL (6.6-8.7) 08/12/22 22:03 Albumin 4.4 g/dL (3.5-5.2) 08/12/22 22:03 Globulin 2.5 g/dL (1.3-4.6) 08/12/22 22:03 EKG Data EKG 1: I personally reviewed and interpreted this EKG as follows: EKG interpretation date: 08/12/22 EKG interpretation time: 21:51 Interpretation: paced rhythm hr [address] or t wave abnormalities qrs 125 qtc 418 Discharge Plan Discharge Patient Disposition: Home Clinical Impression: Atypical chest pain Condition: Stable Prescriptions: No Action losartan 100 mg tablet 100 mg PO DAILY omeprazole 20 mg capsule,delayed release(DR/EC) 20 mg PO DAILY garlic 1,000 mg capsule 1,000 mg PO DAILY calcium carbonate 600 mg calcium (1,500 mg) tablet 600 mg PO DAILY Intrinsi [id number] 500-20-800 mcg-mg-mcg tablet PO spironolacton-hydrochlorothiaz 25-25 mg tablet 1 tab PO DAILY alpha lipoic acid 200 mg capsule 200 mg PO DAILY aspirin [Aspir-81] 81 mg tablet,delayed release (DR/EC) 81 mg PO DAILY simvastatin 10 mg tablet 10 mg PO DAILY Qty: 90 0RF Discharge Orders: Discharge ED (Routine); Ordered 08/13/22 Ordered By: Norberto Damon Referrals: Jorge Mortensen MD [Primary Care Provider] - Discharge Diet: Advance as tolerated Discharge Activity: Resume usual activity Patient Instructions: Chest Pain (ED) Coding Level of Care Code ED Funeral Pre Arrangement Specialist for Chg Fwd Exam Comprehensive
[2022-08-12 22:11] LABS: Basophils # 0.1 10^3/uL (0.0-0.1); Basophils % 0.9 %; Eosinophils # 0.3 10^3/uL (0.0-0.8); Eosinophils % 3.3 %; Hematocrit 41.6 % (42.0-52.0); Hemoglobin 13.7 g/dL (11.7-16.6); Lymphocytes % 31.9 %; Mean Corpuscular HGB Conc 32.9 g/dL (30.0-36.0); Mean Corpuscular Hemoglobin 29.8 pg (28.0-34.0); Mean Corpuscular Volume 90.6 fl (80-94); Monocytes # 0.8 10^3/uL (0.2-0.9); Monocytes % 8.2 %; Neutrophils # 5.14 10^3/uL (1.8-7.7); Neutrophils % 55.4 %; Nucleated Red Blood Cells % 0 %; Platelet Count 203 10^3/cmm (130-400); Red Blood Count 4.59 10^6/uL (4.1-5.3); Red Cell Distribution Width 12.9 % (12.1-15.1); White Blood Count 9.3 10^3/uL (4.0-10.0)
[2022-08-12 22:37] LABS: INR 1.04 (0.8-1.2)
[2022-08-12 22:49] LABS: Troponin(5th) Baseline 20 ng/L (0-15)
[2022-08-12 23:00] VITALS: BP 120/56; PULSE 62; RESP 16; O2SAT 98
[2022-08-12 23:03] LABS: Alanine Aminotransferase 14 U/L (0-41); Albumin Level 4.4 g/dL (3.5-5.2); Alkaline Phosphatase 72 U/L (40-130); Anion Gap 15.7 (5-19); Aspartate Amino Transferase 20 U/L (0-40); Blood Urea Nitrogen 19 mg/dL (8-23); Calcium 9.5 mg/dL (8.5-10.5); Carbon Dioxide 26 mmol/L (22-29); Chloride 99 mmol/L (98-107); Globulin 2.5 g/dL (1.3-4.6); Glucose 152 mg/dL (65-115); Osmolality Calculated 289 mOsm/kg (285-295); Potassium 3.7 mmol/L (3.5-5.1); Sodium 137 mmol/L (136-145); Total Bilirubin 0.4 mg/dL (0.15-1.2); Total Protein 6.9 g/dL (6.6-8.7)
[2022-08-12 23:05] LABS: NT Pro B Type Natriuretic Pept 53 pg/mL (0-450)
--- NOTE | 2022-08-12 23:43 | ECG_ITS ---
[facility] Test Date: 2022-08-12 Pat Name: Monster Dewey Department: Room: Gender: Male Prefitter: : 1935 Requested By: Norberto Damon Order Number: [id number] Yasir MD: Aide Subramanian M.D. Measurements Intervals [place] Rate: 77 P: 251 MI: 168 QRS: -61 QRSD: 125 T: 84 QT: 386 QTc: 439 Interpretive Statements ELECTRONIC ATRIAL PACEMAKER RIGHT BUNDLE BRANCH BLOCK LEFT ANTERIOR FASCICULAR BLOCK Compared to ECG 04/07/2021 03:51:39 Right bundle-branch block now present Sinus rhythm no longer present Sinus arrhythmia no longer present Electronically Signed On 08-13-2022 11:53:56 CDT by Aide Subramanian M.D. [email or web address]
[2022-08-13 00:28] VITALS: BP 123/64; PULSE 63; RESP 15; O2SAT 97
[2022-08-13 01:01] LABS: Troponin 5 2HR 17.45 ng/L (0-15); Troponin 5 2HR Delta -2.55 ABS# (0-10)
[2022-08-13 01:20] VITALS: BP 119/59; PULSE 60; RESP 16; O2SAT 97
== END 2022-08-13 01:21 | disposition home or self-care (01) ==
PROVIDERS: Emergency Provider Emergency Medicine; PCP Family Medicine
DX: R07.89 Other chest pain (principal); Z79.82 Long term (current) use of aspirin; E11.9 Type 2 diabetes mellitus without complications; E78.5 Hyperlipidemia, unspecified; I10 Essential (primary) hypertension; Z95.0 Presence of cardiac pacemaker; Z87.891 Personal history of nicotine dependence
CPT/HCPCS: 71045; 80053; 83880; 84484; 85025; 85610; 93005; 99285

== ENCOUNTER → 2022-10-29 09:19 | Outpatient (BNVA) | payer MEDICARE, OTHER, SELFPAY | PROVIDERS: PCP Family Medicine; Visit Provider Internal Medicine | DX: I10 Essential (primary) hypertension (principal); Z95.0 Presence of cardiac pacemaker; I49.5 Sick sinus syndrome; Z87.891 Personal history of nicotine dependence | CPT/HCPCS: 93280; 99214 ==

== ENCOUNTER → 2023-07-29 08:45 | Outpatient (BNVA) | payer MEDICARE, OTHER, SELFPAY | PROVIDERS: PCP Family Medicine; Visit Provider Internal Medicine | DX: I10 Essential (primary) hypertension (principal); G47.30 Sleep apnea, unspecified; Z95.0 Presence of cardiac pacemaker; E78.5 Hyperlipidemia, unspecified; E11.9 Type 2 diabetes mellitus without complications; Z87.891 Personal history of nicotine dependence | CPT/HCPCS: 99214 ==

== ENCOUNTER 2023-12-02 10:58 | Emergency (ER) | payer MEDICARE, OTHER, SELFPAY ==
[2023-12-02 11:12] VITALS: BP 203/103; PULSE 75; RESP 18; TEMP 36.8; O2SAT 96; BMI 19.3
--- NOTE | 2023-12-02 11:22 | ED_ITS ---
HPI - General Adult 2 General: Chief complaint: General Medical Stated complaint: madelaine, high blood pressure Time Seen by Provider: 12/02/23 11:11 Source: patient Mode of arrival: ambulatory Limitations: no limitations History of Present Illness: 88-year-old male who had an appoint with his director property this morning he was sent here from there for hypertension. He has a history of hypertension states has been taking his meds his blood pressure currently is 173/92 he has no symptoms. Denies headache denies chest pain denies dizziness states he feels at his baseline Associated symptoms: Deny chest pain, dyspnea, headache(s), nausea, rash or vomiting Review of Systems 2 Const: Denies: fever(s), chills, body aches or change in appetite ENMT: Denies: throat pain or dental pain Card: Denies: chest pain Resp: Denies: dyspnea GI: Denies: abdominal pain, nausea, vomiting or diarrhea Musc: Denies: neck pain or back pain Skin/Breast: Denies: rash Neuro: Denies: headache(s) PFSH ED 2 PFSH: Medical History (Updated 12/02/23 @ 12:08 by Norberto Damon MD) Chest pain Sleep apnea Pacemaker Sick sinus syndrome 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 Heart block Hyperlipidemia Diabetes Hypertension Family History Mother Hypertension Social History Smoking and tobacco/nicotine status: former use of tobacco/nicotine Alcohol intake: never Substance/Drug Use: never Household members: spouse Marital status: service: No Current occupational status: retired Physical Exam 2 Const: COMMON NORMALS: no acute distress, patient oriented x3 and healthy appearing HENMT: COMMON NORMALS: normocephalic and atraumatic HEAD & SCALP: n ormocephalic and atraumatic Eye: COMMON NORMALS: conjunctivae normal CONJUNCTIVA: Yes conjunctivae normal Neck/C-Spine: COMMON NORMALS: full ROM and supple Chest: COMMONS NORMALS: normal inspection of the chest Resp: COMMON NORMALS: normal respiratory effort, No retractions, No use of accessory muscles and clear to auscultation bilaterally AUSCULTATION: clear to auscultation bilaterally Cardio: COMMON NORMALS: regular rate, regular rhythm and No murmurs present (Cardio) RATE: regular rate RHYTHM: regular rhythm Extremity: COMMON NORMALS: normal to inspection and full ROM Neuro: COMMON NORMALS: patient oriented x3, moves all extremities and no focal motor deficits Psych: COMMON NORMALS: mental status grossly normal, Normal thought process present and cooperative THOUGHT PROCESS: Normal thought process present Skin: COMMON NORMALS: no rashes or lesions noted and no wounds GENERAL SKIN EXAM: no rashes or lesions noted Course 2 Vital Signs: Vital signs: Vital Signs Temperature 98.2 F 12/02/23 11:12 Pulse Rate 75 12/02/23 11:12 Respiratory Rate 18 12/02/23 11:12 Blood Pressure 144/68 12/02/23 12:28 Pulse Oximetry 96 12/02/23 11:12 Oxygen Delivery Me thod Room Air 12/02/23 11:12 MDM - General Adult Medical Decision Making Patient presents here with hypertension and is asymptomatic here blood work is normal his blood pressure is improved he is stable for discharge follow-up with PCP return if worsening Medical Records I reviewed the patient's medical records. Lab Data I reviewed the patient's lab results. 12/02/23 11:34 12/02/23 11:34 Laboratory Results WBC 11.02 10^3/uL (3.29-11.43) 12/02/23 11:34 RBC 5.15 10^6/uL (3.85-5.65) 12/02/23 11:34 Hgb 15.40 g/dL (11.27-16.99) 12/02/23 11:34 Hct 46.9 % (37-53) 12/02/23 11:34 MCV 91.1 fl (82-101) 12/02/23 11:34 MCH 29.9 pg (27-33) 12/02/23 11:34 MCHC 32.8 g/dL (30-55) 12/02/23 11:34 RDW 13.9 % (12.1-15.1) 12/02/23 11:34 Plt Count 169 10^3/cmm (157-399) 12/02/23 11:34 MPV 10.5 fL (7.4-10.4) H 12/02/23 11:34 Neut % (Auto) 62.0 % 12/02/23 11:34 Lymph % (Auto) 27.8 % 12/02/23 11:34 [place] % (Auto) 7.8 % 12/02/23 11:34 Eos % (Auto) 1.3 % 12/02/23 11:34 Baso % (Auto) 0.6 % 12/02/23 11:34 Neut # (Auto) 6.84 10^3/uL (1.8-7.7) 12/02/23 11:34 Lymph # (Auto) 3.1 10^3/uL (0.8-4.8) 12/02/23 11:34 [place] # (Auto) 0.9 10^3/uL (0.2-0.9) 12/02/23 11:34 Eos # (Auto) 0.1 10^3/uL (0.0-0.8) 12/02/23 11:34 Baso # (Auto) 0.1 10^3/uL (0.0-0.1) 12/02/23 11:34 Nucleated RBC % (auto) 0 % 12/02/23 11:34 Nucleated RBCs # 0.0 /100WBC 12/02/23 11:34 Sodium 143 mmol/L (136-145) 12/02/23 11:34 Potassium 3.9 mmol/L (3.5-5.1) 12/02/23 11:34 Chloride 105 mmol/L (98-107) 12/02/23 11:34 Carbon Dioxide 22 mmol/L (22-29) 12/02/23 11:34 Anion Gap 19.9 (5-19) H 12/02/23 11:34 BUN 14 mg/dL (8-23) 12/02/23 11:34 Creatinine 1.3 mg/dL (0.7-1.2) H 12/02/23 11:34 GFR Calculation Not Reportable 12/02/23 11:34 Glucose 94 mg/dL (65-115) 12/02/23 11:34 Calculated Osmolality 296 mOsm/kg (285-295) H 12/02/23 11:34 Calcium 8.9 mg/dL (8.5-10.5) 12/02/23 11:34 Total Bilirubin 0.5 mg/dL (0.15-1.2) 12/02/23 11:34 AST 24 U/L (0-40) 12/02/23 11:34 ALT 14 U/L (0-41) 12/02/23 11:34 Alkaline Phosphatase 73 U/L (40-130) 12/02/23 11:34 Total Protein 7.3 g/dL (6.6-8.7) 12/02/23 11:34 Albumin 5.0 g/dL (3.5-5.2) 12/02/23 11:34 Globulin 2.3 g/dL (1.3-4.6) 12/02/23 11:34 No radiology studies performed this visit EKG Data EKG 1: I personally reviewed and interpreted this EKG as follows: EKG interpretation date: 12/02/23 EKG interpretation time: 11:24 Interpretation: paced hr [address] elevation qrs 109 qtc 417 Discharge Plan Discharge Patient Disposition: Home Clinical Impression: Hypertension Condition: Stable Prescriptions: No Action losartan 100 mg tablet 100 mg PO DAILY omeprazole 20 mg capsule,delayed release(DR/EC) 20 mg PO DAILY garlic 1,000 mg capsule 1,000 mg PO DAILY calcium carbonate 600 mg calcium (1,500 mg) tablet 600 mg PO DAILY Intrinsi H09-Fbnclt 500-20-800 mcg-mg-mcg tablet PO spironolacton-hydrochlorothiaz 25-25 mg tablet 1 tab PO DAILY alpha lipoic acid 200 mg capsule 200 mg PO DAILY aspirin [Aspir-81] 81 mg tablet,delayed release (DR/EC) 81 mg PO DAILY simvastatin 10 mg tablet 10 mg PO DAILY Qty: 90 0RF repaglinide 0.5 mg tablet 0.5 mg PO TID Rx Instructions: administer within 30 minutes of a meal or snack insulin degludec [Tresiba FlexTouch U-100] 100 unit/mL (3 mL) insulin pen 10 unit SUBCUT DAILY Discharge Orders: Discharge ED (Routine); Ordered 12/02/23 Ordered By: Norberto Damon Referrals: Jorge Mortensen MD [Primary Care Provider] - 4-7 days Discharge Diet: Advance as tolerated Discharge Activity: Resume usual activity Patient Instructions: Hypertension (ED) Coding Level of Care Code ED Human Resources Executive Assistant for Miriam Smith
--- NOTE | 2023-12-02 11:24 | ECG_ITS ---
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 Measurements Intervals [place] Rate: 68 P: 242 [place]: 171 QRS: -46 QRSD: 109 T: 13 QT: 400 QTc: 427 Interpretive Statements ELECTRONIC ATRIAL PACEMAKER LEFT ANTERIOR FASCICULAR BLOCK [QRS AXIS <= -45, QR IN I, RS IN II] SEPTAL MYOCARDIAL INFARCTION , OF INDETERMINATE AGE [40+ ms Q WAVE IN V1/V2] Compared to ECG 08/12/2022 21:51:57 Myocardial infarct finding now present Right bundle-branch block no longer present Electronically Signed On 12-02-2023 12:35:12 CUSTODIAL SERVICES MANAGER by Xander Lizama M.D. [id number]
[2023-12-02] MEDS: hyDRALAzine 20 mg/mL INJ 1 mL 10 MG IVP (11:39)
[2023-12-02 11:42] LABS: Basophils # 0.1 10^3/uL (0.0-0.1); Basophils % 0.6 %; Eosinophils # 0.1 10^3/uL (0.0-0.8); Eosinophils % 1.3 %; Hematocrit 46.9 % (37-53); Lymphocytes # 3.1 10^3/uL (0.8-4.8); Lymphocytes % 27.8 %; Mean Corpuscular HGB Conc 32.8 g/dL (30-55); Mean Corpuscular Hemoglobin 29.9 pg (27-33); Mean Corpuscular Volume 91.1 fl (82-101); Mean Platelet Volume 10.5 fL (7.4-10.4); Monocytes # 0.9 10^3/uL (0.2-0.9); Monocytes % 7.8 %; Neutrophils # 6.84 10^3/uL (1.8-7.7); Nucleated Red Blood Cells % 0 %; Platelet Count 169 10^3/cmm (157-399); Red Blood Count 5.15 10^6/uL (3.85-5.65); Red Cell Distribution Width 13.9 % (12.1-15.1); White Blood Count 11.02 10^3/uL (3.29-11.43)
[2023-12-02 12:03] LABS: Alanine Aminotransferase 14 U/L (0-41); Alkaline Phosphatase 73 U/L (40-130); Aspartate Amino Transferase 24 U/L (0-40); Blood Urea Nitrogen 14 mg/dL (8-23); Calcium 8.9 mg/dL (8.5-10.5); Carbon Dioxide 22 mmol/L (22-29); Chloride 105 mmol/L (98-107); Globulin 2.3 g/dL (1.3-4.6); Glucose 94 mg/dL (65-115); Osmolality Calculated 296 mOsm/kg (285-295); Sodium 143 mmol/L (136-145); Total Bilirubin 0.5 mg/dL (0.15-1.2); Total Protein 7.3 g/dL (6.6-8.7)
[2023-12-02 12:04] VITALS: BP 144/68
[2023-12-02 12:19] LABS: Anion Gap 19.9 (5-19); Potassium 3.9 mmol/L (3.5-5.1)
[2023-12-02 12:28] VITALS: BP 144/68
== END 2023-12-02 12:29 | disposition home or self-care (01) ==
PROVIDERS: Emergency Provider Emergency Medicine; PCP Family Medicine
DX: I10 Essential (primary) hypertension (principal); Z79.82 Long term (current) use of aspirin; Z79.4 Long term (current) use of insulin; Z95.0 Presence of cardiac pacemaker; E78.5 Hyperlipidemia, unspecified; E11.9 Type 2 diabetes mellitus without complications; Z87.891 Personal history of nicotine dependence
CPT/HCPCS: 80053; 85025; 93005; 96374; 99205; 99284; J0360

== ENCOUNTER 2023-12-18 14:12 | Emergency (ER) | payer MEDICARE, OTHER, SELFPAY ==
[2023-12-18 14:19] VITALS: BP 180/90; PULSE 86; RESP 16; TEMP 36.4; O2SAT 99; BMI 19.3
--- NOTE | 2023-12-18 14:23 | XRR_ITS ---
PROCEDURE INFORMATION: Exam: XR Right Shoulder Exam date and time: 12/18/2023 1:45 PM Age: 88 years old Clinical indication: Injury or trauma; Fall; Other: Pain TECHNIQUE: Imaging protocol: Radiologic exam of the right shoulder. Views: 2 or more views. COMPARISON: CR XR chest 1V portable [id number] 08/12/2022 10:00 PM FINDINGS: Tubes, catheters and devices: Dual lead pacemaker. Bones/joints: Moderate degenerative of the right acromioclavicular joint. There is a curvature of the thoracic spine convex to the right. Right rotator cuff calcific tendinosis. Soft tissues: Normal. XR/XR shoulder RT min 2V* [id number] IMPRESSION: No acute fracture or dislocation.
--- NOTE | 2023-12-18 14:32 | ED_ITS ---
HPI - Extremity Problem General: Chief complaint: Extremity Injury, Upper Stated complaint: right shoulder pain, fall Time Seen by Provider: 12/18/23 14:23 History of Present Illness: 88-year-old male patient comes in today for complaints of right shoulder pain and fall. Patient reports that he got up during the night when someone started knocking on his door and tripped and fell going to the door. Patient denies any head injury. Patient is alert and oriented. Patient reports no headache. Patient takes medications for pancreatic deficiency, GERD, and hypertension. Review of Systems General: Reports: 10 or more systems reviewed and unremarkable except in HPI and below PFSH ED PFSH: Medical History (Updated 12/18/23 @ 15:19 by JAYMIE Taylor) Chest pain Sleep apnea Pacemaker Sick sinus syndrome 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 Heart block Hyperlipidemia Diabetes Hypertension Family History Mother Hypertension Social History Smoking and tobacco/nicotine status: former use of tobacco/nicotine Alcohol intake: never Substance/Drug Use: never Household members: spouse Marital status: service: No Current occupational status: retired Physical Exam Const: COMMON NORMALS: alert HENMT: COMMON NORMALS: normocephalic and atraumatic HEAD & SCALP: normocephalic and atraumatic Neck/C-Spine: COMMON NORMALS: full ROM CERVICAL SPINE: No Cervical spine tenderness Resp: COMMON NORMALS: normal respiratory effort and clear to auscultation bilaterally AUSCULTATION: clear to auscultation bilaterally Cardio: COMMON NORMALS: regular rate and regular rhythm RATE: regular rate RHYTHM: regular rhythm GI: COMMON NORMALS: Soft to palpation and non-tender PALPATION: Yes Soft to palpation Back/Pelvis: COMMON NORMALS: thoracic and lumbar spine normal to inspection Extremity: RIGHT UPPER EXTREMITY: Yes shoulder joint (Proximal humeral tenderness, no deformity) Neuro: SENSORIUM/ORIENTATION: Yes alert Skin: COMMON NORMALS: turgor normal GENERAL SKIN EXAM: turgor normal Course Vital Signs: Vital signs: Vital Signs Temperature 97.5 F L 12/18/23 14:19 Pulse Rate 86 12/18/23 14:19 Respiratory Rate 16 12/18/23 14:19 Blood Pressure 180/90 12/18/23 14:19 Pulse Oximetry 99 12/18/23 14:19 Oxygen Delivery Me thod Room Air 12/18/23 14:19 MDM - Extremity (Nontraumatic) Medical Decision Making 88-year-old male patient comes in today for injury secondary to fall. Patient reports waking up during the night with trouble was knocking on his door. Patient lost his balance or tripped on something and fell to the ground on his right side. Patient denies any chest pain or shortness of breath. Patient appears nontoxic. Patient reports no headache. Patient scalp is atraumatic. No tenderness is noted along the cervical, thoracic, or lumbar spine. Patient moves all extremities well. Patient reports tenderness in the proximal humeral area and anterior shoulder. Differential diagnosis includes but not limited to fracture, sprain, contusion, intracranial bleeding. CT of the head showed no intracranial posttraumatic changes. X-ray of the shoulder shows no fracture or dislocation. Evaluation notes a small area of tenderness to the lateral shoulder area. Believe the patient probably most likely has a contusion. Recommended ice or heat to help with pain. Recommend acetaminophen for pain relief. Patient reports understanding and agreed to plan. Lab Data Radiology Impressions Shoulder X-Ray 12/18/23 14:23 IMPRESSION: No acute fracture or dislocation. Head CT 12/18/23 14:32 IMPRESSION: No intracranial posttraumatic changes. All radiology interpretation(s) finalized by discharge Discharge Plan Discharge Patient Disposition: Home Clinical Impression: Fall Qualifiers: Encounter type: initial encounter Qualified Code(s): W19.XXXA - Unspecified fall, initial encounter Shoulder contusion Qualifiers: Encounter type: initial encounter Laterality: right Qualified Code(s): S40.011A - Contusion of right shoulder, initial encounter Head injury, acute, without loss of consciousness Qualifiers: Encounter type: initial encounter Qualified Code(s): S09.90XA - Unspecified injury of head, initial encounter Condition: Stable Prescriptions: No Action losartan 100 mg tablet 100 mg PO DAILY omeprazole 20 mg capsule,delayed release(DR/EC) 20 mg PO DAILY garlic 1,000 mg capsule 1,000 mg PO DAILY calcium carbonate 600 mg calcium (1,500 mg) tablet 600 mg PO DAILY Intrinsi L72-Hrcolm 500-20-800 mcg-mg-mcg tablet 1 tab PO DAILY spironolacton-hydrochlorothiaz 25-25 mg tablet 1 tab PO DAILY alpha lipoic acid 200 mg capsule 200 mg PO DAILY simvastatin 10 mg tablet 10 mg PO DAILY Qty: 90 0RF repaglinide 0.5 mg tablet 0.5 mg PO TID Rx Instructions: administer within 30 minutes of a meal or snack insulin degludec [Tresiba FlexTouch U-100] 100 unit/mL (3 mL) insulin pen 10 unit SUBCUT DAILY Aspir-81 81 mg Tablet,Delayed Release (Dr/Ec) 81 mg PO DAILY Discharge Orders: Discharge ED (Routine); Ordered 12/18/23 Ordered By: Krishan Vazquez Referrals: Jorge Mortensen MD [Primary Care Provider] - Discharge Diet: Usual diet Discharge Activity: Increase activity as tolerated Patient Instructions: Musculoskeletal Pain (ED) Activity Restrictions/Additional Instructions: Follow-up with primary care as needed. Return to ED for worsening symptoms. Use ice or heat to help with pain. Use acetaminophen, Tylenol, 500 to 1000 mg every 6 hours as needed for further pain relief. Coding Level of Care Code ED Employee Relations Consultant for Miriam Smith
--- NOTE | 2023-12-18 14:32 | CTR_ITS ---
PROCEDURE INFORMATION: Exam: CT Head Without Contrast Exam date and time: 12/18/2023 1:45 PM Age: 88 years old Clinical indication: Injury or trauma; Fall; Blunt trauma (contusions or hematomas); Without loss of consciousness TECHNIQUE: Imaging protocol: Computed tomography of the head without contrast. Radiation optimization: All CT scans at this facility use at least one of these dose optimization techniques: automated exposure control; mA and/or kV adjustment per patient size (includes targeted exams where dose is matched to clinical indication); or iterative reconstruction. COMPARISON: No relevant prior studies available. 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 No recent infarct, intracranial bleed or intracranial mass. Cerebral ventricles: No ventriculomegaly. Paranasal sinuses: There is mild mucosal disease of bilateral maxillary sinuses. Post bilateral cataract surgery. Mastoid air cells: Visualized mastoid air cells are well aerated. Bones/joints: Unremarkable. No acute fracture. Soft tissues: Unremarkable. CT/CT head wo con* [id number] IMPRESSION: No intracranial posttraumatic changes.
[2023-12-18 15:37] VITALS: BP 180/90; PULSE 86; RESP 16; TEMP 36.4; O2SAT 99
== END 2023-12-18 15:38 | disposition home or self-care (01) ==
PROVIDERS: Emergency Provider Nurse Practitioner Family; PCP Family Medicine
DX: S40.011A Contusion of right shoulder, initial encounter (principal); S09.8XXA Other specified injuries of head, initial encounter; Z79.82 Long term (current) use of aspirin; Z79.4 Long term (current) use of insulin; Z87.891 Personal history of nicotine dependence; Z95.0 Presence of cardiac pacemaker; E78.5 Hyperlipidemia, unspecified; E11.9 Type 2 diabetes mellitus without complications; I10 Essential (primary) hypertension; W01.0XXA Fall on same level from slipping, tripping and stumbling without subsequent striking against object, initial encounter
CPT/HCPCS: 70450; 73030; 99284

== ENCOUNTER 2024-01-25 07:19 | Outpatient (CLI) | payer MEDICARE, OTHER, SELFPAY ==
[2024-01-25 07:56] LABS: Alanine Aminotransferase 15 U/L (0-41); Albumin Level 4.2 g/dL (3.5-5.2); Alkaline Phosphatase 91 U/L (40-130); Anion Gap 16.2 (5-19); Aspartate Amino Transferase 17 U/L (0-40); Blood Urea Nitrogen 19 mg/dL (8-23); Calcium 9.3 mg/dL (8.5-10.5); Carbon Dioxide 21 mmol/L (22-29); Chloride 102 mmol/L (98-107); Chol HDL Ratio 3.71 mg/dL (1.0-5.00); Cholesterol 167 mg/dL (0-200); Globulin 2.9 g/dL (1.3-4.6); Glucose 266 mg/dL (65-115); HDL Cholesterol 45 mg/dL (60-100); LDL Cholesterol Calculated 100 mg/dL (50-129); LDL HDL Ratio 2.22 RATIO (0.00-3.22); Osmolality Calculated 292 mOsm/kg (285-295); Potassium 4.2 mmol/L (3.5-5.1); Sodium 135 mmol/L (136-145); Total Bilirubin 0.4 mg/dL (0.15-1.2); Total Protein 7.1 g/dL (6.6-8.7); Triglycerides 112 mg/dL (0-150)
[2024-01-25 08:08] LABS: Estmated Average Glucose 169; Hemoglobin A1C 7.5 % (4.0-6.0)
[2024-01-25 08:28] LABS: Creatinine Urine, Random 115 mg/dL (39-259); Microalbum Creatinine Ratio Ur 9 mg/dL (0-20); Microalbumin Random Urine 1 ug/dL (0-20)
== END 2024-01-25 07:20 | disposition home or self-care (01) ==
LOC: LAB 07:20
PROVIDERS: PCP Family Medicine; Visit Provider Internal Medicine
DX: E11.9 Type 2 diabetes mellitus without complications (principal); E78.5 Hyperlipidemia, unspecified; R07.9 Chest pain, unspecified
CPT/HCPCS: 36415; 80053; 80061; 82044; 83036

== ENCOUNTER 2024-02-28 07:48 | Outpatient (CLI) | payer MEDICARE, OTHER, SELFPAY ==
[2024-02-28 08:28] LABS: Alanine Aminotransferase 14 U/L (0-41); Albumin Level 4.3 g/dL (3.5-5.2); Alkaline Phosphatase 68 U/L (40-130); Aspartate Amino Transferase 20 U/L (0-40); Blood Urea Nitrogen 20 mg/dL (8-23); Carbon Dioxide 26 mmol/L (22-29); Chloride 105 mmol/L (98-107); Chol HDL Ratio 3.26 mg/dL (1.0-5.00); Cholesterol 153 mg/dL (0-200); Globulin 2.8 g/dL (1.3-4.6); Glucose 179 mg/dL (65-115); HDL Cholesterol 47 mg/dL (60-100); LDL Cholesterol Calculated 80 mg/dL (50-129); Osmolality Calculated 301 mOsm/kg (285-295); Sodium 142 mmol/L (136-145); Total Bilirubin 0.5 mg/dL (0.15-1.2); Total Protein 7.1 g/dL (6.6-8.7); Triglycerides 129 mg/dL (0-150)
[2024-02-28 08:35] LABS: Creatinine Urine, Random 130 mg/dL (39-259); Microalbum Creatinine Ratio Ur 8 mg/dL (0-20); Microalbumin Random Urine 1 ug/dL (0-20)
[2024-02-28 08:45] LABS: Estmated Average Glucose 177; Hemoglobin A1C 7.8 % (4.0-6.0)
== END 2024-02-28 07:49 | disposition home or self-care (01) ==
LOC: LAB 07:50
PROVIDERS: PCP Family Medicine; Visit Provider Internal Medicine
DX: E11.9 Type 2 diabetes mellitus without complications (principal); E78.5 Hyperlipidemia, unspecified; R07.9 Chest pain, unspecified
CPT/HCPCS: 36415; 80053; 80061; 82044; 83036

== ENCOUNTER → 2024-03-01 09:52 | Outpatient (BNVA) | payer MEDICARE, OTHER, SELFPAY | PROVIDERS: PCP Family Medicine; Visit Provider Internal Medicine | DX: E11.9 Type 2 diabetes mellitus without complications (principal); E78.5 Hyperlipidemia, unspecified; R07.9 Chest pain, unspecified; I16.0 Hypertensive urgency; Z79.4 Long term (current) use of insulin | CPT/HCPCS: 99214 ==

== ENCOUNTER → 2024-04-26 12:54 | Outpatient (BNVA) | payer MEDICARE, OTHER, SELFPAY | PROVIDERS: PCP Family Medicine; Visit Provider Internal Medicine | DX: I10 Essential (primary) hypertension (principal); G47.30 Sleep apnea, unspecified; Z95.0 Presence of cardiac pacemaker; I49.5 Sick sinus syndrome; E78.5 Hyperlipidemia, unspecified; E11.9 Type 2 diabetes mellitus without complications; Z79.4 Long term (current) use of insulin | CPT/HCPCS: 99214 ==

== ENCOUNTER 2024-06-21 16:49 | Emergency (ER) | payer MEDICARE, OTHER, SELFPAY | END 2024-06-21 16:56 | disposition home or self-care (01) | LOC: ER 16:53 | PROVIDERS: PCP Family Medicine | DX: E11.9 Type 2 diabetes mellitus without complications (principal); E78.5 Hyperlipidemia, unspecified; R07.9 Chest pain, unspecified; Z79.4 Long term (current) use of insulin | CPT/HCPCS: 36415; 80053; 80061; 82044; 83036; 84681; 86337; 86341; 99214 ==

== ENCOUNTER → 2024-07-26 10:54 | Outpatient (BNVA) | payer MEDICARE, OTHER, SELFPAY | PROVIDERS: PCP Family Medicine; Referring Provider Family Medicine; Visit Provider Nurse Practitioner Family | DX: D48.5 Neoplasm of uncertain behavior of skin (principal); L57.0 Actinic keratosis; L82.1 Other seborrheic keratosis; D23.111 Other benign neoplasm of skin of right upper eyelid, including canthus; D36.12 Benign neoplasm of peripheral nerves and autonomic nervous system, upper limb, including shoulder; D18.01 Hemangioma of skin and subcutaneous tissue | CPT/HCPCS: 11102; 17000; 99203 ==

== ENCOUNTER → 2024-08-01 09:55 | Outpatient (BNVA) | payer MEDICARE, OTHER, SELFPAY | PROVIDERS: PCP Family Medicine; Referring Provider Internal Medicine; Visit Provider Internal Medicine Cardiovascular Disease | DX: Z95.0 Presence of cardiac pacemaker (principal); I10 Essential (primary) hypertension; E78.2 Mixed hyperlipidemia; E11.9 Type 2 diabetes mellitus without complications; Z79.4 Long term (current) use of insulin; Z87.891 Personal history of nicotine dependence | CPT/HCPCS: 99214 ==

== ENCOUNTER 2024-08-07 06:07 | Outpatient (CLI) | payer MEDICARE, OTHER, SELFPAY ==
[2024-08-07] VITALS (13 sets, daily range): BP systolic 97–163; BP diastolic 50–78; PULSE 58–69; RESP 16–17; TEMP 36.3–36.6; O2SAT 92–99
[2024-08-07 06:52] LABS: Basophils # 0.1 10^3/uL (0.0-0.1); Basophils % 0.5 %; Eosinophils # 0.1 10^3/uL (0.0-0.8); Eosinophils % 1.3 %; Lymphocytes # 4.1 10^3/uL (0.8-4.8); Lymphocytes % 40.5 %; Mean Corpuscular HGB Conc 32.9 g/dL (30-55); Mean Corpuscular Hemoglobin 29.9 pg (27-33); Mean Corpuscular Volume 90.7 fl (82-101); Monocytes # 0.9 10^3/uL (0.2-0.9); Monocytes % 8.5 %; Neutrophils # 4.92 10^3/uL (1.8-7.7); Neutrophils % 48.9 %; Nucleated Red Blood Cells % 0 %; Platelet Count 150 10^3/cmm (157-399); Red Blood Count 4.52 10^6/uL (3.85-5.65); Red Cell Distribution Width 13.2 % (12.1-15.1); White Blood Count 10.06 10^3/uL (3.29-11.43)
[2024-08-07 07:10] LABS: Anion Gap 15.1 (5-19); Blood Urea Nitrogen 35 mg/dL (8-23); Calcium 8.8 mg/dL (8.5-10.5); Carbon Dioxide 25 mmol/L (22-29); Chloride 104 mmol/L (98-107); Glucose 224 mg/dL (65-115); Osmolality Calculated 305 mOsm/kg (285-295); Potassium 4.1 mmol/L (3.5-5.1); Sodium 140 mmol/L (136-145)
--- NOTE | 2024-08-07 07:18 | W.PM.OPSUD ---
Surgery/Procedure H&P Update DATE OF PROCEDURE: August 07, 2024 DATE H&P PERFORMED: 08/01/24 H&P UPDATE INFORMATION: I have reviewed H&P completed within last 30 days, I have examined patient prior to procedure, No changes to prior documentation and Changes to prior documentation as noted here PREOP DIAGNOSIS: PPM KAI PRIMARY INDICATION FOR PROCEDURE: Pt with symptomatic keyon cardia, s/P PPM, KAI PLANNED PROCEDURE: Operation Date: 08/07/24 07:00 Proposed Procedures p Pacemaker Generator Change PPM GEnerator Change - REM/REP DUAL PPM(Not Applicable) - Deirdre Cedeno MD PATIENT REASSESSED PRIOR TO SEDATION, WITH NO CHANGE NOTED: Yes PHYSICAL EXAM: alert, oriented x 3, clear to auscultation bilaterally and regular rate & rhythm AIRWAY EVAL/ANESTHESIA PLAN: normal airway, see other exam findings, ASA III, Monitored Anesthesia, Local Anesthesia, Risks, benefits & alternatives of sedation and/or procedure discussed and Patient agrees to continue as planned
--- NOTE | 2024-08-07 08:25 | P.OP_ITS ---
Operative Report Date of procedure: August 07, 2024 Surgeon: Deirdre Cedeno MD Procedure: PROCEDURE: PACEMAKER REVISION PREOPERATIVE DIAGNOSIS: Pacemaker elective replacement indication. POSTOPERATIVE DIAGNOSIS: Pacemaker elective replacement indication. ESTIMATED BLOOD LOSS: None COMPLICATIONS: None. BRIEF HISTORY: The patient is 89-year-old white male who had a permanent pacemaker implantation for sick sinus syndrome. The patient was found to have elective replacement indication, during routine office followup evaluation. For further management of patient's condition for the symptomatic bradycardia, the patient required a pacemaker revision. Patient required a dual-chamber pacemaker for symptom relief and the need for AV synchrony The procedure was explained to the patient and his family(son) in detail with the risks and benefits. The risks of bleeding, hematoma, vascular injury, infection and other concomitant complications were explained in detail, which the patient understood well and consented to proceed. PROCEDURES PERFORMED: 1. Explantation of the old pacemaker generator. 2. Implantation of the new generator. The patient brought to the Cardiac Special Education Assistant. The left side of the neck and the subclavian area were cleaned and draped in a sterile fashion. 1% Xylocaine was used for local anesthetic agent. A 2 inch long incision was made just below the previous pacemaker scar. By sharp and blunt dissection, the pacemaker pocket was accessed. The old generator was delivered from the pocket. The generator was detached from the lead. The new Medtronic generator was attached to the lead. The pacemaker pocket was copiously irrigated with vancomycin solution. Complete hemostasis was achieved. The lead was positioned behind the generator and the generator was attached to the pectoralis fascia by suturing with 0 Surgilon. Sponge counts were confirmed. The pacemaker pocket was closed in layers. Skin was approximated using 4-0 Vicryl. EXPLANTED DEVICE: Pacemaker Generator: Brand: Adapta Model number:[id number] Serial number: [id number] Date of implant: 10/18/1948 IMPLANTED DEVICES: Ventricular Lead: Date of implantation: 10/18/2014 Model number: [id number] Serial number: [id number] Make: Medtronic. Atrial lead Date of implantation: 10/18/2014 Model number: [id number] Serial number: [id number] Make: Medtronic. Implanted Generator: Date of implantation : 08/07/2024 Brand: Araseli XT DR NNAMDI Mathis. Model number: [id number] Serial number: [id number] Make: Medtronic Stimulation Threshold: The ventricular sensing was 4.8 millivolts. Ventricular lead impedance was 361 ohms and the pacing threshold was 0.75 volts at 0.4 milliseconds. The atrial sensing was 1.9 millivolts. Atrial lead impedance was 475 ohms and the pacing threshold was 1.0 volts at 0.4 milliseconds. The pacemaker was set for AAIR/DDDR mode with an upper rate of 130 and a lower rate of 60. A pressure dressing was applied over the pacemaker site. The patient was transferred back to medical floor in stable condition. Sponge counts were correct.
--- NOTE | 2024-08-07 08:30 | SUR.EXTENDED ---
Received the patient back from the [facility] s/p Pacemaker Generator change via cot. Patient A & O x 3. Large bulky pressure sressing to the left upper chest dry and intact. Palpable left radial pulse. Son at bedside. No other changes noted from pre cath assessment. Will transfer to [facility] after recovery period.
--- NOTE | 2024-08-07 09:00 | SUR.EXTENDED ---
Patient transferred via cot to room 272 with family at bedside.
[2024-08-07] MEDS: aspirin 81 mg EC Tablet PO (10:31)
[2024-08-07] MEDS: losartan 50 mg Tablet 100 MG PO (10:31)
[2024-08-07] MEDS: pantoprazole DR 40 mg Tablet PO (10:32)
[2024-08-07] MEDS: calcium carbonate 600 mg Tablet PO (10:32)
[2024-08-07] MEDS: atorvastatin 40 mg Tablet 20 MG PO (10:33)
[2024-08-07] MEDS: sodium chloride 0.9% 1,000 ML 75 ML IV ×3 (10:55→22:42)
[2024-08-07 11:48] LABS: Glucose Point of Care 316 mg/dL (70-110)
[2024-08-07 16:00] LABS: Glucose Point of Care 281 mg/dL (70-110)
[2024-08-07] MEDS: ceFAZolin 2,000 mg SDV 2000 MG IVP (16:09)
[2024-08-07 20:39] LABS: Glucose Point of Care 257 mg/dL (70-110)
[2024-08-08] VITALS: BP 152/68; PULSE 62; RESP 17; TEMP 36.8; O2SAT 94
[2024-08-08] MEDS: ceFAZolin 2,000 mg SDV 2000 MG IVP (00:05)
[2024-08-08 04:00] VITALS: BP 153/73; PULSE 65; RESP 18; TEMP 36.7; O2SAT 94
[2024-08-08 06:00] VITALS: PULSE 63
--- NOTE | 2024-08-08 06:00 | ECG_ITS ---
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 Measurements Intervals [place] Rate: 66 P: 237 [place]: 165 QRS: -46 QRSD: 121 T: 47 QT: 438 QTc: 459 Interpretive Statements ELECTRONIC ATRIAL PACEMAKER LEFT ANTERIOR FASCICULAR BLOCK [QRS AXIS <= -45, QR IN I, RS IN II] NONSPECIFIC T-WAVE ABNORMALITY Compared to ECG 12/02/2023 11:24:52 T-wave abnormality now present Myocardial infarct finding no longer present Electronically Signed On 08-08-2024 17:10:50 CDT by Lilo Lamas M.D. [id number]
[2024-08-08 06:17] LABS: Glucose Point of Care 232 mg/dL (70-110)
[2024-08-08 08:00] VITALS: BP 165/70; PULSE 64; RESP 17; TEMP 36.6; O2SAT 97
[2024-08-08 09:00] VITALS: BP 165/70
[2024-08-08] MEDS: losartan 50 mg Tablet 100 MG PO (09:00)
[2024-08-08] MEDS: aspirin 81 mg EC Tablet PO (09:00)
[2024-08-08] MEDS: hydroCHLOROthiazide 25 mg Tablet PO (09:01)
[2024-08-08] MEDS: calcium carbonate 600 mg Tablet PO (09:01)
[2024-08-08] MEDS: atorvastatin 40 mg Tablet 20 MG PO (09:01)
[2024-08-08] MEDS: spironolactone 25 mg Tablet PO (09:02)
[2024-08-08] MEDS: pantoprazole DR 40 mg Tablet PO (09:02)
[2024-08-08] MEDS: insulin glargine 100 units/1 mL 12 UNIT SUBCUT (09:06)
--- NOTE | 2024-08-08 10:05 | PM.PN ---
Subjective Subjective: Patient is doing well s/p pacemaker battery replacement. This patient had a dual-chamber permanent pacemaker implantation in 2014. He was found to be in [facility] on 07/18/2024. He has a Medtronic device, Adapta. Incision site to the left chest is clean, dry, well approximated w/o s/s of infection. Pacemaker is working correctly. Medications: Medication Review Details: Current Medications Aspirin (Aspirin 81 Mg Ec Tablet) 81 mg PO DAILY [facility] Last Admin: 08/08/24 09:00 Dose: 81 mg Atorvastatin Calcium (Atorvastatin 40 Mg Tablet) 20 mg PO DAILY [facility] Last Admin: 08/08/24 09:01 Dose: 20 mg Calcium Carbonate (Calcium Carbonate 600 Mg Tablet) 600 mg PO DAILY [facility] Last Admin: 08/08/24 09:01 Dose: 600 mg Hydrochlorothiazide (Hydrochlorothiazide 25 Mg Tablet) 25 mg PO DAILY [facility] Last Admin: 08/08/24 09:01 Dose: 25 mg Sodium Chloride (Sodium Chloride 0.9%) 1,000 mls @ 75 mls/hr IV .[id number] [facility] Last Admin: 08/07/24 22:42 Dose: 75 mls/hr Insulin Glargine (Insulin Glargine 100 Units/1 Ml) 12 unit SUBCUT DAILY [facility] Last Admin: 08/08/24 09:06 Dose: 12 unit Losartan Potassium (Losartan 50 Mg Tablet) 100 mg PO DAILY [facility] Last Admin: 08/08/24 09:00 Dose: 100 mg Non-Formulary Medication (Acarbose) 25 mg PO TID [facility] Non-Formulary Medication (Acarbose) 50 mg PO TID [facility] Non-Formulary Medication (Acarbose) 100 mg PO TID [facility] Non-Formulary Medication (Vit [id number] Fact-Fa Cmb #2 [Intrinsi [id number]]) 1 tab PO DAILY [facility] Pantoprazole Sodium (Pantoprazole Dr 40 Mg Tablet) 40 mg PO DAILY [facility] Last Admin: 08/08/24 09:02 Dose: 40 mg Spironolactone (Spironolactone 25 Mg Tablet) 25 mg PO DAILY [facility] Last Admin: 08/08/24 09:02 Dose: 25 mg Vitals/I&O/Wt Last Vital Signs Temp 97.9 F 08/08/24 08:00 Pulse 64 08/08/24 08:00 Resp 17 08/08/24 08:00 BP 165/70 08/08/24 09:00 Pulse Ox 97 08/08/24 08:00 O2 Del Method Room Air 08/08/24 08:00 08/07/24 08/08/24 08/08/24 22:59 06:59 14:59 Intake Total 2473.75 / 2713.75 360 / 3073.75 360 / 360 Balance 2473.75 / 2713.75 360 / 3073.75 360 / 360 Weight last 48 hrs Weight 139 lb 9.6 oz Weight 139 lb 6.4 oz Physical Exam Narrative: General: No apparent distress, healthy appearing, well nourished HENMT: normoceophalic Muskuloskeletal: Full ROM Lymphatic: no lymphedema noted Respiratory: Normal respiratory effort, clear to auscultation bilaterally throughout all lung elliott, no use of accessory muscles Cardio: No JVD, regular rate, regular rhythm, S1 S2 normal, no murmurs Extremities: Full ROM, normal, normal capillary refill, no cyanosis or edema Neuro: Alert and oriented x4, no focal motor deficits Psych: Affect normal, denies suicidal ideation, mental status grossly normal Skin: Left chest pacemaker generator change site clean dry intact well-approximated no signs symptoms of infection no swelling present Data 08/07/24 06:46 08/07/24 06:46 Other Labs: Laboratory Last Values WBC 10.06 10^3/uL (3.29-11.43) 08/07/24 06:46 RBC 4.52 10^6/uL (3.85-5.65) 08/07/24 06:46 Hgb 13.50 g/dL (11.27-16.99) 08/07/24 06:46 Hct 41.0 % (37-53) 08/07/24 06:46 MCV 90.7 fl (82-101) 08/07/24 06:46 MCH 29.9 pg (27-33) 08/07/24 06:46 MCHC 32.9 g/dL (30-55) 08/07/24 06:46 RDW 13.2 % (12.1-15.1) 08/07/24 06:46 Plt Count 150 10^3/cmm (157-399) L 08/07/24 06:46 MPV 11.0 fL (7.4-10.4) H 08/07/24 06:46 Neut % (Auto) 48.9 % 08/07/24 06:46 Lymph % (Auto) 40.5 % 08/07/24 06:46 Elliott % (Auto) 8.5 % 08/07/24 06:46 Eos % (Auto) 1.3 % 08/07/24 06:46 Baso % (Auto) 0.5 % 08/07/24 06:46 Neut # (Auto) 4.92 10^3/uL (1.8-7.7) 08/07/24 06:46 Lymph # (Auto) 4.1 10^3/uL (0.8-4.8) 08/07/24 06:46 Elliott # (Auto) 0.9 10^3/uL (0.2-0.9) 08/07/24 06:46 Eos # (Auto) 0.1 10^3/uL (0.0-0.8) 08/07/24 06:46 Baso # (Auto) 0.1 10^3/uL (0.0-0.1) 08/07/24 06:46 Nucleated RBC % (auto) 0 % 08/07/24 06:46 Nucleated RBCs # 0.0 /100WBC 08/07/24 06:46 Sodium 140 mmol/L (136-145) 08/07/24 06:46 Potassium 4.1 mmol/L (3.5-5.1) 08/07/24 06:46 Chloride 104 mmol/L (98-107) 08/07/24 06:46 Carbon Dioxide 25 mmol/L (22-29) 08/07/24 06:46 Anion Gap 15.1 (5-19) 08/07/24 06:46 BUN 35 mg/dL (8-23) H 08/07/24 06:46 Creatinine 1.4 mg/dL (0.7-1.2) H 08/07/24 06:46 GFR Calculation Not Reportable 08/07/24 06:46 Glucose 224 mg/dL (65-115) H 08/07/24 06:46 POC Glucose 232 mg/dL (70-110) H 08/08/24 06:11 Calculated Osmolality 305 mOsm/kg (285-295) H 08/07/24 06:46 Calcium 8.8 mg/dL (8.5-10.5) 08/07/24 06:46 A&P Assessment and plan (1) Pacemaker generator end of life: S/P pacemaker battery replacement. Patient tolerated well with no complications. Incision is well-approximated without signs or symptoms of infection or bleeding. Pacemaker was checked and found to be working properly checked via carelink. (2) Pacemaker: Plan Patient doing well status post battery replacement of pacemaker. No complications. Incision looks good. Activity restrictions were given to the patient involving the left upper extremity. We will see the patient in about 1 week for evaluation and treatment. Attestations Medical Necessity Statement*: Patient was outpatient in bed status. Coding Level of Care Code Acute Code for Chg Fwd Diagnoses Pacemaker generator end of life Z45.010 Pacemaker Z95.0
[2024-08-08 10:55] VITALS: BP 146/92; PULSE 67; RESP 17; TEMP 36.3; O2SAT 96
== END 2024-08-08 12:40 | disposition home or self-care (01) ==
LOC: CCL 06:11 → MEDSURG 09:48
PROVIDERS: PCP Family Medicine; Visit Provider Internal Medicine Cardiovascular Disease
DX: Z45.010 Encounter for checking and testing of cardiac pacemaker pulse generator [battery] (principal); I48.91 Unspecified atrial fibrillation; E11.9 Type 2 diabetes mellitus without complications; I10 Essential (primary) hypertension; E78.5 Hyperlipidemia, unspecified; Z87.891 Personal history of nicotine dependence; I25.118 Atherosclerotic heart disease of native coronary artery with other forms of angina pectoris
CPT/HCPCS: 33228; 36415; 36416; 80048; 82962; 85025; 93005; 96365; 96367; 96372; 97165; 99152; 99153; A4216; C1769; C1786; J0690; J1815; J2250; J3010; J3370; J7030; J7050

== ENCOUNTER → 2024-08-21 14:14 | Outpatient (BNVA) | payer MEDICARE, OTHER, SELFPAY | PROVIDERS: PCP Family Medicine; Visit Provider Nurse Practitioner Family | DX: I10 Essential (primary) hypertension (principal); Z95.0 Presence of cardiac pacemaker; Z87.891 Personal history of nicotine dependence | CPT/HCPCS: 99213 ==

== ENCOUNTER → 2024-09-11 10:45 | Outpatient (BNVA) | payer MEDICARE, OTHER, SELFPAY | PROVIDERS: PCP Family Medicine; Visit Provider Internal Medicine | DX: E11.9 Type 2 diabetes mellitus without complications (principal); Z79.4 Long term (current) use of insulin; E78.2 Mixed hyperlipidemia | CPT/HCPCS: 99214 ==

== ENCOUNTER → 2024-10-09 10:03 | Outpatient (BNVA) | payer MEDICARE, OTHER, SELFPAY | PROVIDERS: PCP Family Medicine; Visit Provider Nurse Practitioner Family | DX: I10 Essential (primary) hypertension (principal); Z95.0 Presence of cardiac pacemaker; E11.9 Type 2 diabetes mellitus without complications; I48.91 Unspecified atrial fibrillation; Z87.891 Personal history of nicotine dependence; Z79.4 Long term (current) use of insulin | CPT/HCPCS: 99214 ==

== ENCOUNTER → 2025-01-21 15:02 | Outpatient (BNVA) | payer MEDICARE, OTHER, SELFPAY | PROVIDERS: PCP Family Medicine; Visit Provider Internal Medicine | DX: I10 Essential (primary) hypertension (principal); I49.5 Sick sinus syndrome; E78.2 Mixed hyperlipidemia; E11.9 Type 2 diabetes mellitus without complications; Z79.4 Long term (current) use of insulin; Z87.891 Personal history of nicotine dependence; Z95.0 Presence of cardiac pacemaker | CPT/HCPCS: 99213 ==

== ENCOUNTER → 2025-01-23 13:03 | Outpatient (BNVA) | payer MEDICARE, OTHER, SELFPAY | PROVIDERS: PCP Family Medicine; Visit Provider Nurse Practitioner Family | DX: L82.1 Other seborrheic keratosis (principal); L57.8 Other skin changes due to chronic exposure to nonionizing radiation; L81.4 Other melanin hyperpigmentation; D18.01 Hemangioma of skin and subcutaneous tissue; X32.XXXA Exposure to sunlight, initial encounter; D23.111 Other benign neoplasm of skin of right upper eyelid, including canthus; D36.12 Benign neoplasm of peripheral nerves and autonomic nervous system, upper limb, including shoulder; S20.369A Insect bite (nonvenomous) of unspecified front wall of thorax, initial encounter; D48.5 Neoplasm of uncertain behavior of skin; X58.XXXA Exposure to other specified factors, initial encounter | CPT/HCPCS: 10120; 69100; 99213 ==

== ENCOUNTER → 2025-01-30 10:55 | Outpatient (BNVA) | payer MEDICARE, OTHER, SELFPAY | PROVIDERS: PCP Family Medicine; Visit Provider Internal Medicine | DX: Z45.018 Encounter for adjustment and management of other part of cardiac pacemaker (principal) | CPT/HCPCS: 93296 ==

== ENCOUNTER → 2025-03-12 10:43 | Outpatient (BNVA) | payer MEDICARE, OTHER, SELFPAY | PROVIDERS: PCP Family Medicine; Visit Provider Internal Medicine | DX: E11.9 Type 2 diabetes mellitus without complications (principal); Z79.4 Long term (current) use of insulin; E78.2 Mixed hyperlipidemia | CPT/HCPCS: 36415; 80053; 80061; 82044; 83036; 99214 ==

== ENCOUNTER → 2025-05-01 11:22 | Outpatient (BNVA) | payer MEDICARE, OTHER, SELFPAY | PROVIDERS: PCP Family Medicine; Visit Provider Internal Medicine Cardiovascular Disease | DX: Z45.018 Encounter for adjustment and management of other part of cardiac pacemaker (principal) | CPT/HCPCS: 93296 ==

== ENCOUNTER 2025-05-26 15:56 | Emergency (ER) | payer MEDICARE, SELFPAY ==
[2025-05-26 16:02] VITALS: BP 137/77; PULSE 81; RESP 18; O2SAT 94
--- OUTSIDE RECORDS SUMMARY | 2025-05-26 16:03 | XMS_ITS | Encounter Summary ---
Author Organization [facility] Address [address] [place] [address] Care Team Providers Care Geospatial Intelligence Analyst Name Role Phone Adriel Oh DO Primary Care Provider [phone] Encounter Details Date Type Department Care Team (Latest Contact Info) Description 02/13/1999 Outpatient Historical [facility] Tono Drummond NO ADDRESS ON FILE Cellulitis and abscess of unspecified digit (Primary Dx) Social History Tobacco Use Types Packs/Day Years Used Date Smoking Tobacco: Never Assessed Sex and Gender Information Value Date Recorded Sex Assigned at Not on file 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
--- OUTSIDE RECORDS SUMMARY | 2025-05-26 16:03 | XMS_ITS | Encounter Summary ---
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
--- OUTSIDE RECORDS SUMMARY | 2025-05-26 16:03 | XMS_ITS | Encounter Summary ---
Author Organization [facility] Address [address] [place] [address] Care Team Providers Care Deer Farmer Name Role Phone Adriel Oh DO Primary Care Provider [phone] Encounter Details Date Type Department Care Team (Late st Contact Info) Description 12/02/2002 Emergency [facility] Emergency Department [address] [place] [phone] Marvin Menjivar MD NO ADDRESS ON FILE SYNCOPE AND COLLAPSE (Primary Dx) Social History Tobacco Use Types Packs/Day Years Used Date Smoking Tobacco: Never Assessed Sex and Gender Information Value Date Recorded Sex Assigned at Not on file 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
--- OUTSIDE RECORDS SUMMARY | 2025-05-26 16:03 | XMS_ITS | Clinical Summary ---
Author Organization [facility] Address [address] [place] [address] Care Team Providers Care Assault Amphibious Vehicle Crewman Name Role Phone Adriel Oh DO Primary Care Provider Allergies Active Allergy Reactions Criticality Noted Date Comments Metaxalone Other (See Comments) 07/16/2013 Slow heart rate Tramadol Other (See Comments) 07/16/2013 Slow heart rate Medications omeprazole (PRILOSEC) 10 mg Oral CpDR Take 10 mg by mouth daily. Active LISINOPRIL-HYDRO CHLOROTHIAZIDE ORAL Take by mouth. Active repaglinide (PRANDIN) 0.5 mg Oral tablet Take 0.5 mg by mouth 3 times daily with meals. Active CALCIUM CARBONATE (CALCIUM 500 ORAL) Take by mouth. Active Alpha Lipoic Acid 200 mg Oral Tab Take by mouth. Active simvastatin (ZOCOR) 10 mg Oral tablet Take 10 mg by mouth Daily LATE. Active folic acid (FOLVITE) 0.8 mg Oral Tab Take 800 mcg by mouth daily. 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 Gender Identity Not on file Sexual Orientation Not on file Last Filed Vital Signs Vital Sign Reading Time Taken Comments Blood Pressure 125/73 07/23/2015 10:51 AM CDT Pulse 69 07/23/2015 10:51 AM CDT Temperature - - Respiratory Rate - - Oxygen Saturation - - Inhaled Oxygen Concentration - - Weight 65.8 kg (145 lb) 07/23/2015 10:51 AM CDT Height 177.8 cm (5' 10 ) 07/23/2015 10:51 AM CDT Body Mass Index 20.81 07/23/2015 10:51 AM CDT Plan of Treatment Health Maintenance Due Date Last Done Comments DTAP/TDAP/TD VACCINES (1 - Tdap) 02[birth year]13/1954 PNEUMOCOCCAL VACCINE 50+ YEARS (1 of 1 - PCV) 02/13/19 86 ZOSTER VACCINE (1 of 2) 02/13/1986 RSV VACCINE (60+ or ) (1 - 1-dose 75+ series) 02/13/2011 INFLUENZA VACCINE (#1) 2025 Insurance MEDICARE PART A AND B GENERIC PAYOR Care Teams Assault Amphibious Vehicle Crewman Relationship Specialty Start Date End Date Adriel Oh DO [address] [place] [phone] PCP - General 12/02/02
--- OUTSIDE RECORDS SUMMARY | 2025-05-26 16:03 | XMS_ITS | Clinical Summary ---
Author Organization [facility] Address [address] [facility] Attn: [place] [address] Care Team Providers Care Custodian Athletic Equipment Name Role Phone Adriel Oh DO Primary Care Provider Allergies Active Allergy Reactions Criticality Noted Date Comments Metaxalone Other (See Comments) 07/16/2013 Slow heart rate Tramadol Other (See Comments) 07/16/2013 Slow heart rate Social History Tobacco Use Types Packs/Day Years Used Date Smoking Tobacco: Unknown Alcohol Use Standard Drinks/Week Comments Not Asked 0 (1 standard drink = 0.6 oz pur e alcohol) Sex and Gender Information Value Date Recorded Sex Assigned at Not on file Legal Sex Male 4:00 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
--- NOTE | 2025-05-26 16:09 | W.ED.WOUNDLC ---
HPI - Wound/Laceration General: Chief Complaint: Wound/Laceration Stated Complaint: lac left arm Time Seen by Provider: 05/26/25 16:07 Source: patient Mode of arrival: ambulatory History of Present Illness: 89-year-old male states that he had tripped and fell at home and hit his left arm has skin tear to left arm. He is unsure if it needed sutures he denies any pain denies hitting his head denies passing out. Associated symptoms: Denies chills, fever(s), nausea or vomiting Related Data Home Medications ?Medication ?Instructions ?Recorded ?Confirmed alpha lipoic acid 200 mg capsule 200 mg PO DAILY 02/15/20 03/11/25 calcium carbonate 600 mg PO DAILY 02/15/20 03/11/25 garlic 1,000 mg capsule 1,000 mg PO DAILY 02/15/20 03/11/25 losartan 100 mg tablet 100 mg PO DAILY 02/15/20 03/11/25 omeprazole 20 mg capsule,delayed 20 mg PO DAILY 02/15/20 03/11/25 release spironolactone 25 1 tab PO DAILY 02/15/20 03/11/25 mg-hydrochlorothiazide 25 mg tablet vit H11-[id number] factor-folic 1 tab PO DAILY 02/15/20 03/11/25 acid cmb#2 500 mcg-20 mg-800 mcg tablet (Intrinsi B66-Yaagwb) aspirin 81 mg capsule 81 mg PO DAILY 08/07/24 03/11/25 insulin glargine 100 unit/mL (3 9 unit SUBCUT DAILY 01/21/25 03/11/25 mL) subcutaneous pen (Lantus Solostar U-100 Insulin) Previous Rx's ?Medication ?Instructions ?Recorded simvastatin 10 mg tablet 10 mg PO DAILY #90 tabs 02/15/20 pen needle, diabetic 31 gauge x #100 ea 03/01/2402/22 (Comfort EZ Pen [place]) blood-glucose sensor (FreeStyle #6 ea 06/21/24 Demarco 3 Sensor device) acarbose 100 mg tablet See Rx Instructions .Route 02/14/25 .COMPLEX #90 tabs Allergies Allergy/AdvReac Type Severity Reaction Status Date / Time lisinopril Allergy ALGY-Swell Verified 03/11/25 15:30 Lip/Tongue/Throat metformin Allergy ADR-Diarrhe Verified 03/11/25 15:30 a nitroglycerin Allergy ADV-Weaknes Verified 03/11/25 15:30 s Review of Systems Const: Denies: fever(s), chills, body aches or change in appetite ENMT: Denies: throat pain or dental pain Card: Denies: chest pain Resp: Denies: dyspnea GI: Denies: abdominal pain, nausea, vomiting or diarrhea Musc: Denies: neck pain or back pain Skin/Breast: Denies: rash Neuro: Denies: headache(s) PFSH ED PFSH: Medical History Chest pain Sleep apnea Pacemaker Sick sinus syndrome 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 Heart block Hyperlipidemia Diabetes Hypertension Family History Mother Hypertension Social History Smoking and tobacco/nicotine status: former use of tobacco/nicotine Alcohol intake: never Substance/Drug Use: never Household members: spouse Marital status: service: No Current occupational status: retired Physical Exam Const: COMMON NORMALS: no acute distress, patient oriented x3 and healthy appearing HENMT: COMMON NORMALS: normocephalic and atraumatic HEAD & SCALP: normocephalic and atraumatic Eye: COMMON NORMALS: conjunctivae normal CONJUNCTIVA: Yes conjunctivae normal Neck/C-Spine: COMMON NORMALS: full ROM and supple Chest: COMMONS NORMALS: normal inspection of the chest Resp: COMMON NORMALS: normal respiratory effort Cardio: COMMON NORMALS: regular rate RATE: regular rate Extremity: COMMON NORMALS: full ROM NARRATIVE EXTREMITY EXAM: 2 superficial skin tears to left forearm no bleeding at this time no tenderness to his arm Neuro: COMMON NORMALS: patient oriented x3, moves all extremities and no focal motor deficits Psych: COMMON NORMALS: mental status grossly normal, Normal thought process present and cooperative THOUGHT PROCESS: Normal thought process present Skin: COMMON NORMALS: no rashes or lesions noted GENERAL SKIN EXAM: no rashes or lesions noted Course Vital Signs: Vital signs: Vital Signs Pulse Rate 81 05/26/25 16:02 Respiratory Rate 18 05/26/25 16:02 Blood Pressure 137/77 05/26/25 16:02 Pulse Oximetry 94 05/26/25 16:02 Oxygen Delivery Me thod Room Air 05/26/25 16:02 MDM - Wound/Laceration Medical Decision Making Patient presents here with skin tear superficial nature does not need repair did dress the wounds no other injuries from his fall he stable for discharge follow-up PCP return if worsening. No radiology studies performed this visit Discharge Plan Discharge Patient Disposition: Home Clinical Impression: Skin tear Condition: Stable Prescriptions: No Action losartan 100 mg tablet 100 mg PO DAILY omeprazole 20 mg capsule,delayed release(DR/EC) 20 mg PO DAILY garlic 1,000 mg capsule 1,000 mg PO DAILY calcium carbonate 600 mg calcium (1,500 mg) tablet 600 mg PO DAILY Intrinsi [id number] 500-20-800 mcg-mg-mcg tablet 1 tab PO DAILY spironolacton-hydrochlorothiaz 25-25 mg tablet 1 tab PO DAILY alpha lipoic acid 200 mg capsule 200 mg PO DAILY simvastatin 10 mg tablet 10 mg PO DAILY Qty: 90 0RF (DME) pen needle, diabetic [Comfort EZ Pen [place]] 31 gauge x 5/16 needle See Rx Instructions .Route Qty: 100 1RF Rx Instructions: As directed (DME) FreeStyle Demarco 3 Sensor Device See Rx Instructions .Route Qty: 6 1RF Rx Instructions: change sensor every 14 days acarbose 100 mg tablet See Rx Instructions .ROUTE .COMPLEX Qty: 90 0RF Dose Instruction: TAKE 1 TABLET BY MOUTH THREE TIMES DAILY BEFORE MEAL(S) Rx Instructions: TAKE 1 TABLET BY MOUTH THREE TIMES DAILY BEFORE MEAL(S) aspirin 81 mg Capsule 81 mg PO DAILY insulin glargine [Lantus Solostar U-100 Insulin] 100 unit/mL (3 mL) insulin pen 9 unit SUBCUT DAILY Discharge Orders: Discharge ED (Routine); Ordered 05/26/25 Ordered By: Norberto Damon Referrals: Jorge Mortensen MD [Primary Care Provider, Family Practice] - 4-7 days Discharge Diet: Advance as tolerated Discharge Activity: Resume usual activity Patient Instructions: Skin Tear (ED) Print Language: Syriac Coding Level of Care Code ED Catalogue Compiler for Miriam Smith
== END 2025-05-26 16:20 | disposition home or self-care (01) ==
PROVIDERS: Emergency Provider Emergency Medicine; PCP Family Medicine
DX: S41.112A Laceration without foreign body of left upper arm, initial encounter (principal); Z79.82 Long term (current) use of aspirin; Z79.4 Long term (current) use of insulin; Z87.891 Personal history of nicotine dependence; Z95.0 Presence of cardiac pacemaker; E78.5 Hyperlipidemia, unspecified; E11.9 Type 2 diabetes mellitus without complications; I10 Essential (primary) hypertension; W01.0XXA Fall on same level from slipping, tripping and stumbling without subsequent striking against object, initial encounter
CPT/HCPCS: 99282

== ENCOUNTER → 2025-06-11 10:24 | Outpatient (BNVA) | payer MEDICARE, OTHER, SELFPAY | PROVIDERS: PCP Family Medicine; Visit Provider Internal Medicine | DX: E11.9 Type 2 diabetes mellitus without complications (principal); E78.2 Mixed hyperlipidemia; Z79.4 Long term (current) use of insulin | CPT/HCPCS: 99214 ==

== ENCOUNTER 2025-07-16 11:04 | Inpatient (IN) | payer MEDICARE, OTHER, SELFPAY ==
[2025-07-16] VITALS (24 sets, daily range): BP systolic 128–180; BP diastolic 54–99; PULSE 63–115; RESP 14–28; TEMP 36.8; O2SAT 84–99; BMI 18.6
--- NOTE | 2025-07-16 11:05 | ECG_ITS ---
[facility] Test Date: 2025-07-16 Pat Name: Monster Dewey Department: Room: Gender: Male Paramedic Supervisor: : 1935 Requested By: Jim Campos Order Number: [id number] Yasir MD: Deirdre Cedeno M.D. Measurements Intervals [place] Rate: 85 P: 228 [place]: 185 QRS: -59 QRSD: 122 T: 70 QT: 364 QTc: 435 Interpretive Statements ELECTRONIC ATRIAL PACEMAKER LEFT ANTERIOR FASCICULAR BLOCK [QRS AXIS <= -45, QR IN I, RS IN II] Compared to ECG 08/08/2024 05:36:24 T-wave abnormality no longer present Electronically Signed On 07-16-2025 23:50:10 CDT by Deirdre Cedeno M.D. [id number]
--- NOTE | 2025-07-16 11:10 | CT_ITS ---
WS: [id number] CT HEAD TECHNIQUE: Noncontrast CT of the head obtained from the skullbase to the vertex. CLINICAL INFORMATION: AMS/fall COMPARISON: 2023 DLP: 1019.[address] scans at [facility] use at least one of these dose optimization techniques: automated exposure control; mA and/or kV adjustment per patient size (includes targeted exams where dose is matched to clinical indication); or iterative reconstruction. FINDINGS: Increased extra-axial attenuation RIGHT inferior frontal lobe laterally on the initial imaging. Repeat imaging was performed due to motion and beam hardening artifact and this area resolved compatible with artifact. Moderate small vessel changes with moderate parenchymal volume loss. No evidence of mass or mass effect. Vascular calcification. Chronic lacunar infarct RIGHT thalamus. Mild polypoid mucosal thickening in the paranasal sinuses. Evidence of prior sinus surgery partially visualized. Mastoid air cells appear well aerated. Mild mucosal thickening in the mastoid tips. Cerumen in the LEFT greater than RIGHT EACs. CT/CT head wo con* [id number] IMPRESSION: 1. No evidence of intracranial hemorrhage or mass effect. 2. No acute intracranial findings. Notified Jim Resendez DO at 07/16/2025 12:49 PM.
--- OUTSIDE RECORDS SUMMARY | 2025-07-16 11:22 | XMS_ITS | Encounter Summary ---
Author Organization [facility] Address [address] [place] [address] Care Team Providers Care Supervisor Facepiece Line Name Role Phone Adriel Oh DO Primary Care Provider [phone] Encounter Details Date Type Department Care Team (Latest Contact Info) Description 02/13/1999 Outpatient Historical [facility] Tono Drummond NO ADDRESS ON FILE Cellulitis and abscess of unspecified digit (Primary Dx) Social History Tobacco Use Types Packs/Day Years Used Date Smoking Tobacco: Never Assessed Sex and Gender Information Value Date Recorded Sex Assigned at Not on file 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
--- OUTSIDE RECORDS SUMMARY | 2025-07-16 11:22 | XMS_ITS | Encounter Summary ---
Author Organization [facility] Address [address] [place] [address] Care Team Providers Care Oversize Load Pilot Escort Name Role Phone Adriel Oh DO Primary Care Provider Encounter Details Date Type Department Care Team (Late st Contact Info) Description 12/02/2002 Emergency [facility] Emergency Department [address] [place] [phone] Marvin Menjivar MD NO ADDRESS ON FILE SYNCOPE AND COLLAPSE (Primary Dx) Social History Tobacco Use Types Packs/Day Years Used Date Smoking Tobacco: Never Assessed Sex and Gender Information Value Date Recorded Sex Assigned at Not on file 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
--- OUTSIDE RECORDS SUMMARY | 2025-07-16 11:22 | XMS_ITS | Clinical Summary ---
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
--- OUTSIDE RECORDS SUMMARY | 2025-07-16 11:22 | XMS_ITS | Clinical Summary ---
Author Organization [facility] Address [address] 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
--- OUTSIDE RECORDS SUMMARY | 2025-07-16 11:22 | XMS_ITS | Encounter Summary ---
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
[2025-07-16 11:34] LABS: Hematocrit 45.5 % (37-53); Hemoglobin 15.30 g/dL (11.27-16.99); Mean Corpuscular HGB Conc 33.6 g/dL (30-55); Mean Corpuscular Hemoglobin 29.2 pg (27-33); Mean Corpuscular Volume 86.8 fl (82-101); Nucleated Red Blood Cells % 0 %; Platelet Count 127 10^3/cmm (157-399); Red Blood Count 5.24 10^6/uL (3.85-5.65); White Blood Count 18.01 10^3/uL (3.29-11.43)
[2025-07-16 11:38] LABS: Arterial Blood Gas Hematocrit 43.7 % (42-52); Blood Gas Sample Type Arterial; Ionized Calcium Level - ABG 1.2 mmol/L (1.1-1.4); Sodium Level - ABG 135.0 mmol/L (131-143)
[2025-07-16 11:45] LABS: Ketone (Acetest) Serum Negative (Negative)
[2025-07-16 11:51] LABS: Alanine Aminotransferase 19 U/L (0-41); Albumin Level 5.0 g/dL (3.5-5.2); Alkaline Phosphatase 113 U/L (40-130); Blood Urea Nitrogen 27 mg/dL (8-23); Calcium 9.7 mg/dL (8.5-10.5); Carbon Dioxide 21 mmol/L (22-29); Chloride 93 mmol/L (98-107); Creatinine Clr Calc Pharmacy 32.1295; Globulin 3.2 g/dL (1.3-4.6); Lactic Sepsis W/Reflex 2.4 mmol/L (0.5-2.2); Lipase 35 U/L (13-60); Magnesium 1.8 mg/dL (1.7-2.3); Osmolality Calculated 304 mOsm/kg (285-295); Sodium 133 mmol/L (136-145); Total Protein 8.2 g/dL (6.6-8.7)
--- NOTE | 2025-07-16 11:52 | W.ED.WEAKNES ---
HPI - Weakness General: Chief complaint: Weakness Stated complaint: AMS, HIGH BS Time Seen by Provider: 07/16/25 11:05 History of Present Illness: 89-year-old male presents emergency room he was found down at home by his family. Evidently last night the neighbor was concerned and called police they did a well person check around 830 and he seemed okay. This morning the family went to check on him they could not get into the home they eventually broke into his home and found him naked on the floor. He has a little bit of a skin tear to his right elbow and forearm. He is not able to answer any questions or contribute to history at this time. He is feces smeared to about his body. He is diabetic he does not on any anticoagulants. Initial [id number] glucose on arrival is 507. Related Data Home Medications ?Medication ?Instructions ?Recorded ?Confirmed alpha lipoic acid 200 mg capsule 200 mg PO DAILY 02/15/20 07/16/25 calcium carbonate 600 mg PO DAILY 02/15/20 07/16/25 garlic 1,000 mg capsule 1,000 mg PO DAILY 02/15/20 07/16/25 omeprazole 20 mg capsule,delayed 20 mg PO DAILY 02/15/20 07/16/25 release spironolactone 25 1 tab PO QAM 02/15/20 07/16/25 mg-hydrochlorothiazide 25 mg tablet vit [id number] factor-folic 1 tab PO DAILY 02/15/20 07/16/25 acid cmb#2 500 mcg-20 mg-800 mcg tablet (Intrinsi S23-[id number]) aspirin 81 mg capsule 81 mg PO DAILY 08/07/24 07/16/25 insulin glargine 100 unit/mL (3 9 unit SUBCUT DAILY 01/21/25 07/16/25 mL) subcutaneous pen (Lantus Solostar U-100 Insulin) multivitamin 1 tab PO QAM 07/16/25 07/16/25 Previous Rx's ?Medication ?Instructions ?Recorded simvastatin 10 mg tablet 10 mg PO DAILY #90 tabs 02/15/20 pen needle, diabetic 31 gauge x #100 ea 03/01/2402/22 (Comfort EZ Pen [place]) blood-glucose sensor (FreeStyle #6 ea 06/21/24 Demarco 3 Sensor device) acarbose 100 mg tablet See Rx Instructions .Route 06/27/25 .COMPLEX #90 tabs Allergies Allergy/AdvReac Type Severity Reaction Status Date / Time lisinopril Allergy ALGY-Swell Verified 03/11/25 15:30 Lip/Tongue/Throat metformin Allergy ADR-Diarrhe Verified 03/11/25 15:30 a nitroglycerin Allergy ADV-Weaknes Verified 03/11/25 15:30 s PFSH ED PFSH: Medical History (Updated 07/16/25 @ 17:39 by Jim Resendez DO) Prostate cancer Sleep apnea Pacemaker Sick sinus syndrome 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 Heart block Hyperlipidemia Diabetes Hypertension Surgical History (Updated 07/16/25 @ 13:50 by Allen Alexandra MD) H/O knee surgery H/O shoulder surgery History of hernia surgery S/P transurethral resection of prostate History of lung surgery Family History (Updated 07/16/25 @ 13:49 by Allen Alexandra MD) Mother Hypertension COPD (chronic obstructive pulmonary disease) Father Stroke Social History Smoking and tobacco/nicotine status: former use of tobacco/nicotine Alcohol intake: never Substance/Drug Use: never Household members: spouse Marital status: service: No Current occupational status: retired Physical Exam Const: ORIENTATION/CONSCIOUSNESS: Yes awake HENMT: COMMON NORMALS: normocephalic and atraumatic HEAD & SCALP: normocephalic and atraumatic Resp: COMMON NORMALS: normal respiratory effort, No retractions, No use of accessory muscles and clear to auscultation bilaterally AUSCULTATION: clear to auscultation bilaterally Cardio: COMMON NORMALS: regular rate, regular rhythm and No murmurs present (Cardio) RATE: regular rate RHYTHM: regular rhythm GI: COMMON NORMALS: Soft to palpation and No hepatosplenomegaly present AUSCULTATION: Yes normoactive bowel sounds PALPATION: Yes Soft to palpation, No Tenderness to palpation present (GI), No Guarding due to palpation present (GI) and Yes No hepatosplenomegaly present Extremity: COMMON NORMALS: normal to inspection, capillary refill normal, no clubbing, cyanosis or edema, no calf tenderness and no pedal edema Skin: COMMON NORMALS: no rashes or lesions noted GENERAL SKIN EXAM: no rashes or lesions noted Course Vital Signs: Vital signs: Vital Signs Temperature 98.3 F 07/16/25 11:04 Pulse Rate 65 07/16/25 16:00 Respiratory Rate 23 H 07/16/25 14:35 Blood Pressure 160/67 07/16/25 16:00 Pulse Oximetry 98 07/16/25 16:00 Oxygen Delivery Me thod Room Air 07/16/25 14:26 MDM - Weakness Medical Decision Making Altered mental status elevated lactic acid. I believe his elevated lactic acid is elevated blood sugar he does not have any ketones blood sugar did improve with IV fluids and insulin. Patient was given a fluid bolus and started on antibiotics empirically. CT shows renal cyst which will need follow-up at a later date. Discussed with hospitalist orders written. Medical Records I reviewed the patient's medical records. Lab Data I reviewed the patient's lab results. 07/16/25 11:21 07/16/25 11:[address] 07/16/25 11:10 IMPRESSION: 1. No evidence of intracranial hemorrhage or mass effect. 2. No acute intracranial findings. Notified Jim Resendez DO at 07/16/2025 12:49 PM. Abdomen/Pelvis CT 07/16/25 12:48 IMPRESSION: 1. Multiple bilateral solid-appearing renal lesions increased in size since 2013 largest solid lesion on the LEFT measuring 3.6 x 3.6 cm suspicious for neoplasm. Additional smaller solid-appearing RIGHT renal lesions the largest measuring 2.2 cm also suspicious for neoplasm and increased compared to previous studies. 2. Peripherally calcified large complex cystic lesion in the RIGHT kidney also increased in size now with internal increased attenuation peripheral nodularity suspicious for cystic neoplasm. Recommend urology consultation this lesion is similar to the prior ultrasound in 2019 but increased since 2012 3. Mora catheter. 4. Prior prostatectomy. 5. No other acute abdominal findings. Laboratory Results WBC 18.01 10^3/uL (3.29-11.43) H 07/16/25 11:21 RBC 5.24 10^6/uL (3.85-5.65) 07/16/25 11:21 Hgb 15.30 g/dL (11.27-16.99) 07/16/25 11:21 Hct 45.5 % (37-53) 07/16/25 11:21 MCV 86.8 fl (82-101) 07/16/25 11:21 MCH 29.2 pg (27-33) 07/16/25 11:21 MCHC 33.6 g/dL (30-55) 07/16/25 11:21 RDW 12.4 % (12.1-15.1) 07/16/25 11:21 Plt Count 127 10^3/cmm (157-399) L 07/16/25 11:21 MPV 12.1 fL (7.4-10.4) H 07/16/25 11:21 Neut % (Auto) 68.4 % 07/16/25 11:21 Lymph % (Auto) 24.5 % 07/16/25 11:21 [place] % (Auto) 4.4 % 07/16/25 11:21 Eos % (Auto) 0.1 % 07/16/25 11:21 Baso % (Auto) 0.5 % 07/16/25 11:21 Neut # (Auto) 12.33 10^3/uL (1.8-7.7) H 07/16/25 11:21 Lymph # (Auto) 4.4 10^3/uL (0.8-4.8) 07/16/25 11:21 [place] # (Auto) 0.8 10^3/uL (0.2-0.9) 07/16/25 11:21 Eos # (Auto) 0.0 10^3/uL (0.0-0.8) 07/16/25 11:21 Baso # (Auto) 0.1 10^3/uL (0.0-0.1) 07/16/25 11:21 Nucleated RBC % (auto) 0 % 07/16/25 11:21 Nucleated RBCs # 0.0 /100WBC 07/16/25 11:21 Specimen Type Arterial 07/16/25 11:26 Sample Site Brachial, right 07/16/25 11:26 ABG pH 7.44 (7.35-7.45) 07/16/25 11:26 ABG pCO2 35.3 mmHg (35-45) 07/16/25 11:26 ABG pO2 71.5 mmHg (80.0-100.0) L 07/16/25 11:26 ABG PO2/FiO2 Ratio 340 07/16/25 11:26 ABG HCO3 23.9 mmol/L (22-26) 07/16/25 11:26 ABG O2 Saturation 93.6 07/16/25 11:26 ABG Base Excess 0.2 mmol/L (-2.0-2.0) 07/16/25 11:26 Zain Test N/a 07/16/25 11:26 A-a O2 Gradient 4.5 mmHg (5-10) L 07/16/25 11:26 Hematocrit 43.7 % (42-52) 07/16/25 11:26 Hgb O2 Saturation 92.6 % (95-100) L 07/16/25 11:26 Carboxyhemoglobin < 0.3 %THgb (0.4-20.1) L 07/16/25 11:26 Methemoglobin 1.1 % (0.4-1.5) 07/16/25 11:26 Total Hemoglobin 14.3 g/dL (14-18) 07/16/25 11:26 Sodium 135.0 mmol/L (131-143) 07/16/25 11:26 Potassium 4.1 mmol/L (3.5-5.0) 07/16/25 11:26 Glucose 483.0 mg/dL (70-115) H 07/16/25 11:26 Ionized Calcium 1.2 mmol/L (1.1-1.4) 07/16/25 11:26 O2 Delivery Device None 07/16/25 11:26 FiO2 21.0 % 07/16/25 11:26 Supervisor Reinforced Steel Placing ID Broma 07/16/25 11:26 Sodium 133 mmol/L (136-145) L 07/16/25 11:21 Potassium 4.7 mmol/L (3.5-5.1) 07/16/25 11:21 Chloride 93 mmol/L (98-107) L 07/16/25 11:21 Carbon Dioxide 21 mmol/L (22-29) L 07/16/25 11:21 Anion Gap 23.7 (5-19) H 07/16/25 11:21 BUN 27 mg/dL (8-23) H 07/16/25 11:21 Creatinine 1.3 mg/dL (0.7-1.2) H 07/16/25 11:21 GFR Calculation Not Reportable 07/16/25 11:21 Glucose 518 mg/dL (65-115) H* 07/16/25 11:21 POC Glucose 406 mg/dL (70-110) H 07/16/25 12:41 Calculated Osmolality 304 mOsm/kg (285-295) H 07/16/25 11:21 Lactic Acid 2.4 mmol/L (0.5-2.2) H 07/16/25 11:21 Lactic Acid (Sepsis) 3.3 mmol/L (0.5-2.2) H 07/16/25 13:41 Calcium 9.7 mg/dL (8.5-10.5) 07/16/25 11:21 Magnesium 1.8 mg/dL (1.7-2.3) 07/16/25 11:21 Total Bilirubin 0.5 mg/dL (0.15-1.2) 07/16/25 11:21 AST 26 U/L (0-40) 07/16/25 11:21 ALT 19 U/L (0-41) 07/16/25 11:21 Alkaline Phosphatase 113 U/L (40-130) 07/16/25 11:21 Creatine Kinase 95 U/L (39-308) 07/16/25 11:21 Total Protein 8.2 g/dL (6.6-8.7) 07/16/25 11:21 Albumin 5.0 g/dL (3.5-5.2) 07/16/25 11:21 Globulin 3.2 g/dL (1.3-4.6) 07/16/25 11:21 Lipase 35 U/L (13-60) 07/16/25 11:21 Urine Color Yellow (Yellow) 07/16/25 12:20 Urine Appearance Clear (CLEAR) 07/16/25 12:20 Urine pH 5.5 (5-7) 07/16/25 12:20 Ur Specific [place] 1.037 (1.005-1.030) H 07/16/25 12:20 Urine Protein Negative (Negative) 07/16/25 12:20 Urine Glucose (UA) 3+ (Normal) H 07/16/25 12:20 Urine Ketones 1+ (Negative) H 07/16/25 12:20 Urine Blood Non-haemolysed trace (Negative) 07/16/25 12:20 Urine Nitrate Negative (Negative) 07/16/25 12:20 Urine Bilirubin Negative (Negative) 07/16/25 12:20 Urine Urobilinogen 0.2 mg/dL (Negative) 07/16/25 12:20 Ur Leukocyte Esterase Negative (Negative) 07/16/25 12:20 Urine RBC None /hpf (0-2) 07/16/25 12:20 Urine WBC None /hpf (0-5) 07/16/25 12:20 Ur Squamous Epith Cells None /hpf (0-5) 07/16/25 12:20 Amorphous Sediment Not Reportable 07/16/25 12:20 Urine Bacteria None /hpf (NONE) 07/16/25 12:20 Urine Mucus None /hpf 07/16/25 12:20 Serum Ketones Negative (Negative) 07/16/25 11:21 Influenza A (PCR) Negative (Negative) 07/16/25 11:36 Influenza Type B (PCR) Negative (Negative) 07/16/25 11:36 RSV (PCR) Negative (Negative) 07/16/25 11:36 SARS-CoV-2 (PCR) Negative (Negative) 07/16/25 11:36 All radiology interpretation(s) finalized by discharge EKG Data EKG 1: Interpretation: EKG 07/16/2025 1124 atrial paced rhythm rate of 85 [address]Tc [address] changes noted. Compared to EKG 1012 32,024 Discharge Plan Discharge Patient Disposition: Admitted As Inpatient Admit Provider: Allen Alexandra Clinical Impression: Hyperosmolar hyperglycemic state (HHS), Diabetes, Altered mental status, Elevated lactic acid level Condition: Stable Coding Level of Care Code ED Nuclear Radiologist for Miriam Smith
[2025-07-16 11:55] LABS: Anion Gap 23.7 (5-19); Aspartate Amino Transferase 26 U/L (0-40); Potassium 4.7 mmol/L (3.5-5.1)
[2025-07-16 11:56] LABS: Glucose 518 mg/dL (65-115)
[2025-07-16 11:58] LABS: ABG PCO2 35.3 mmHg (35-45); ABG PH Result 7.44 (7.35-7.45); Alveolar-Arterial Oxygen Gradi 4.5 mmHg (5-10); Blood Gas Operator Identificat BROMA; Blood Gas Sample Site Brachial, right; Carboxyhemoglobin < 0.3 %THgb (0.4-20.1); Glucose Level-ABG 483.0 mg/dL (70-115); HCO3 ABG 23.9 mmol/L (22-26); Methemoglobin 1.1 % (0.4-1.5); Oxygen Saturation ABG 93.6; PO2 ABG 71.5 mmHg (80.0-100.0); PO2 FiO2 Ratio Arterial Blood 340; Potassium Level - ABG 4.1 mmol/L (3.5-5.0)
[2025-07-16 12:03] LABS: Slide Review Slide Review Perform
--- NOTE | 2025-07-16 12:11 | PC.NURSE ---
Attempted to straight cath pt for urine, no urine output from catheter, ntfd provider before removing straight cath, order received to attach negron bag to catheter
[2025-07-16] MEDS: insulin regular-human 100 units/1 mL 10 UNIT IVP (12:18)
[2025-07-16 12:20] LABS: Respiratory Syncytial Virus Ce NEGATIVE (Negative); SARS-CoV-2 PCR NEGATIVE (Negative)
[2025-07-16 12:34] LABS: Glucose Urine UA 3+ (Normal); Nitrate Urine Negative (Negative); Specific Gravity, Urine 1.037 (1.005-1.030)
[2025-07-16 12:46] LABS: Add Urine Microscopic? YES
--- NOTE | 2025-07-16 12:48 | CT_ITS ---
WS: [id number] CT ABDOMEN PELVIS TECHNIQUE: Noncontrast CT of the abdomen and pelvis with coronal and sagittal reformatted images. CLINICAL INFORMATION: Abdominal pain COMPARISON: 2013 and ultrasound 2019 DLP: 539.[address] scans at [facility] use at least one of these dose optimization techniques: automated exposure control; mA and/or kV adjustment per patient size (includes targeted exams where dose is matched to clinical indication); or iterative reconstruction. FINDINGS: No hydronephrosis in either kidney. Solid-appearing LEFT renal lesion suspicious for neoplasm increased since the CT in 2012 the largest measuring 3.6 x 3.6 cm. This also appears slightly increased in size since the prior ultrasound in 2019 Smaller solid RIGHT renal lesions also suspicious for neoplasm the largest measuring 2.2 cm increased since the CT in 2012 and not delineated on the prior ultrasound Complex cystic lesion RIGHT kidney with peripheral nodularity suspicious for cystic neoplasm increased since 2012 and similar to 2019. Additional smaller associated upper pole indeterminate cystic-appearing lesion measuring 2.6 cm Bibasilar atelectasis. Noncontrast liver and kidney are normal. Small esophageal hernia. Normal noncontrast gallbladder. Fatty atrophy of the pancreas. Adrenal glands are normal. Normal caliber abdominal aorta. Vascular calcification. Prostatectomy. Surgical clips in the prostate bed. Diverticulosis. No evidence of acute diverticulitis. CT/CT abdomen pelvis wo con [id number] IMPRESSION: 1. Multiple bilateral solid-appearing renal lesions increased in size since 13 largest solid lesion on the LEFT measuring 3.6 x 3.6 cm suspicious for neopl asm. Additional smaller solid-appearing RIGHT renal lesions the largest measuri ng 2.2 cm also suspicious for neoplasm and increased compared to previous studi es. 2. Peripherally calcified large complex cystic lesion in the RIGHT kidney also increased in size now with internal increased attenuation peripheral nodularit y suspicious for cystic neoplasm. Recommend urology consultation this lesion is similar to the prior ultrasound in 2019 but increased since 2013 3. Mora catheter. 4. Prior prostatectomy. 5. No other acute abdominal findings.
[2025-07-16 13:12] LABS: Reflex Lactate Order REFLEX LACTIC ORDERD
--- NOTE | 2025-07-16 13:40 | PM.HP ---
Providers/Chief Complaint Admitting Physician: Dr. Alexandra Primary Care Provider: Jorge Mortensen MD Chief Complaint: AMS, HIGH BS History of Present Illness Monster Dewey is a 89 year old male presenting after being found down this AM. He lives by himself. Per report someone, potentially neighbors - called for a wellness check and the police checked on him yesterday evening and determined that he was doing OK at that time. The son called him this morning and believed that he sounded somewhat confused. He states that the patient gets fuzzy when his blood sugars get high. He said that he would come by at 10 AM. He came to the house and had difficulty getting in. All the doors had been barricaded and the patient was unable to take down the barricades to allow his son in. Eventually the son broke down the screen door. He found his father confused and naked, blood on his elbow, report of fecal matter spread over him. He then brought him to the hospital. On arrival his blood sugars were reported to be > 500. Review of Systems General: Reports: ROS unobtainable due to mental status Medications/Allergies Home Medications ?Medication ?Instructions ?Recorded ?Confirmed ?Last Taken ?Type alpha lipoic acid 200 mg capsule 200 mg PO DAILY 02/15/20 06/11/25 08/06/24 History calcium carbonate 600 mg PO DAILY 02/15/20 06/11/25 08/06/24 History garlic 1,000 mg capsule 1,000 mg PO DAILY 02/15/20 06/11/25 08/06/24 History losartan 100 mg tablet 100 mg PO DAILY 02/15/20 06/11/25 08/06/24 History omeprazole 20 mg capsule,delayed 20 mg PO DAILY 02/15/20 06/11/25 08/06/24 History release simvastatin 10 mg tablet 10 mg PO DAILY #90 tabs 02/15/20 06/11/25 08/06/24 Rx spironolactone 25 1 tab PO DAILY 02/15/20 06/11/25 08/06/24 History mg-hydrochlorothiazide 25 mg tablet vit M88-[id number] factor-folic 1 tab PO DAILY 02/15/20 06/11/25 08/06/24 History acid cmb#2 500 mcg-20 mg-800 mcg tablet (Intrinsi K97-Emfela) pen needle, diabetic 31 gauge x #100 ea 03/01/24 06/11/25 Unknown Rx 5/16 (Comfort EZ Pen [place]) blood-glucose sensor (FreeStyle #6 ea 06/21/24 06/11/25 Unknown Rx Demarco 3 Sensor device) aspirin 81 mg capsule 81 mg PO DAILY 08/07/24 06/11/25 08/06/24 History insulin glargine 100 unit/mL (3 9 unit SUBCUT DAILY 01/21/25 06/11/25 Unknown History mL) subcutaneous pen (Lantus Solostar U-100 Insulin) acarbose 100 mg tablet See Rx Instructions .Route 06/27/25 Unknown Rx .COMPLEX #90 tabs Allergies Allergy/AdvReac Type Severity Reaction Status Date / Time lisinopril Allergy ALGY-Swell Verified 03/11/25 15:30 Lip/Tongue/Throat metformin Allergy ADR-Diarrhe Verified 03/11/25 15:30 a nitroglycerin Allergy ADV-Weaknes Verified 03/11/25 15:30 s PFSH Acute PFSH: Medical History Chest pain Sleep apnea Pacemaker Sick sinus syndrome 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 Heart block Hyperlipidemia Diabetes Hypertension Surgical History (Updated 07/16/25 @ 13:50 by Allen Alexandra MD) H/O knee surgery H/O shoulder surgery History of hernia surgery S/P transurethral resection of prostate History of lung surgery Family History Mother Hypertension Social History Smoking and tobacco/nicotine status: former use of tobacco/nicotine Alcohol intake: never Substance/Drug Use: never Household members: spouse Marital status: service: No Current occupational status: retired Vitals/I&O/Wt Last Vital Signs Temp 98.3 F 07/16/25 11:04 Pulse 74 07/16/25 13:18 Resp 16 07/16/25 13:18 BP 138/99 07/16/25 13:18 Pulse Ox 97 07/16/25 13:18 O2 Del Method Room Air 07/16/25 11:04 07/15/25 07/16/25 07/16/25 22:59 06:59 14:59 Intake Total 1000 / 1000 Balance 1000 / 1000 Weight last 48 hrs Weight 58.967 kg Physical Exam Const: EXAM LIMITATIONS: altered mental status HENMT: COMMON NORMALS: normocephalic and atraumatic Resp: COMMON NORMALS: normal respiratory effort, No retractions, No use of accessory muscles and clear to auscultation bilaterally Cardio: COMMON NORMALS: no JVD RHYTHM: abnormal rhythm (PPM in place) GI: COMMON NORMALS: Soft to palpation, non-tender and No hepatosplenomegaly present Neuro: OTHER: somnolent, not able to participate in interview. Urinary Catheter Management: Mora: Cath Placed During This Visit: yes Urinary Catheter Date of Insertion: 07/16/25 Urinary Catheter Time of Insertion: 12:13 Data 07/16/25 11:21 07/16/25 11:21 Micro: Microbiology 07/16/25 11:21 Blood Culture - Preliminary Blood SPECIMEN COLLECTED A&P Assessment and plan 1. Diabetes: 2. Hyperosmolar hyperglycemic state (HHS): Plan: 89 year old male presenting after being found down at home. HHS - Hyperglycemic hyperosmolar state DMII with hyperglycemia, not well controlled - recent prior A1c in March was 11.0, repeat this admission - cont. NS at 125 - home glargine is 9 units daily on chart - start on glargine 15 units qHS, lispro 5 w/ meals - SSI - adjust as necessary Hyponatremia - mild, cont. NS Leukocytosis - no evidence of infection: UA clear - head CT negative - Abdomen/pelvis CT pending - blood cultures pending - likely related to high blood sugars, monitor off antibiotics AMS Probable history of dementia - per family, he confused when his blood sugars get high. Prostate CA in remission SSS, PPM in place, recent battery exchange HLD GERD HTN - cont. home regimen when more alert. Diet: CC when cleared Disposition - Full code - case mgmt for discharge planning - PT/OT PDMP PDMP Reviewed: Not Reviewed Attestations Medical Necessity Statement*: Anticipate > 2 midnights for HHS syndrome. Time Spent in Patient Care: 16 - 35 minutes (>than 50% of time spent in counselling and/or direct pt care on unit). Coding Level of Care Code Acute Code for [facility] Diagnoses Diabetes E11.9 Hyperosmolar hyperglycemic state (HHS) E11.00
[2025-07-16] MEDS: piperacillin-tazobactam 3.375 GM in sodium chloride 0.9% (plus) 50 ML IV (13:45)
[2025-07-16 14:22] LABS: Lactic Acid level (Lactate) 3.3 mmol/L (0.5-2.2)
--- NOTE | 2025-07-16 15:28 | PC.PHAR ---
patient would not wake up when I tried to find out when he last took his medication. Family member in the room gave me a list , but wasn't sure last time Patient took his medications. . Family member thinks Patiane quit taking the Simvastatin from his Doctor's orders.
[2025-07-16] MEDS: insulin glargine 100 units/1 mL 15 UNIT SUBCUT (20:06)
[2025-07-17] VITALS (51 sets, daily range): BP systolic 116–165; BP diastolic 52–133; PULSE 59–119; RESP 14–27; TEMP 36.8–37.8; O2SAT 91–98
[2025-07-17] MEDS: LORazepam 1 MG/0.5 ML injection IVP (01:19)
[2025-07-17] MEDS: haloperidol inj 5 mg/mL INJ 1 mL 2 MG IVP (01:19)
[2025-07-17 09:07] LABS: Hematocrit 39.6 % (37-53); Hemoglobin 12.90 g/dL (11.27-16.99); Mean Corpuscular HGB Conc 32.6 g/dL (30-55); Mean Corpuscular Hemoglobin 29.8 pg (27-33); Mean Corpuscular Volume 91.5 fl (82-101); Nucleated Red Blood Cells % 0 %; Platelet Count 111 10^3/cmm (157-399); Red Blood Count 4.33 10^6/uL (3.85-5.65); White Blood Count 17.71 10^3/uL (3.29-11.43)
[2025-07-17 09:23] LABS: Alanine Aminotransferase 13 U/L (0-41); Albumin Level 3.7 g/dL (3.5-5.2); Alkaline Phosphatase 59 U/L (40-130); Anion Gap 14.4 (5-19); Aspartate Amino Transferase 21 U/L (0-40); Blood Urea Nitrogen 17 mg/dL (8-23); Calcium 8.3 mg/dL (8.5-10.5); Carbon Dioxide 21 mmol/L (22-29); Chloride 109 mmol/L (98-107); Creatinine Clr Calc Pharmacy 41.4375; Globulin 2.2 g/dL (1.3-4.6); Glucose 139 mg/dL (65-115); Magnesium 1.7 mg/dL (1.7-2.3); Osmolality Calculated 296 mOsm/kg (285-295); Potassium 3.4 mmol/L (3.5-5.1); Sodium 141 mmol/L (136-145); Total Protein 5.9 g/dL (6.6-8.7)
[2025-07-17 09:42] LABS: Slide Review Slide Review Perform
[2025-07-17 09:55] LABS: Estmated Average Glucose 326; Hemoglobin A1C 13.0 % (4.0-6.0)
[2025-07-17] MEDS: LORazepam 1 MG/0.5 ML injection 0.5 MG IVP (10:19)
--- NOTE | 2025-07-17 12:19 | PC.OT ---
OT TREATMENT HELD THIS A.M. DUE TO ATIVAN SECONDARY TO AGITATION PER NURSING. WILL ATTEMPT AGAIN AT A LATER TIME.
--- NOTE | 2025-07-17 13:32 | P.PN_ITS ---
Subjective 2 Subjective: Somewhat more alert today, remains confused. Vitals/I&O/Wt Last Vital Signs Temp 100.1 F H 07/17/25 07:30 Pulse 68 07/17/25 12:00 Resp 21 H 07/17/25 12:00 BP 118/54 07/17/25 12:00 Pulse Ox 97 07/17/25 12:00 O2 Del Method Room Air 07/17/25 12:00 07/16/25 07/17/25 07/17/25 22:59 06:59 14:59 Intake Total 945.833 / 3493.955 4629 / 2995.833 Output Total 275 / 275 Balance 945.833 / 3 725 / 2720.833 Weight last 48 hrs Weight 58.5 kg Weight 61.5 kg Weight 58.967 kg Physical Exam 2 Const: COMMON NORMALS: no acute distress and average body habitus GENERAL APPEARANCE: anxious ORIENTATION/CONSCIOUSNESS: Yes confused HENMT: COMMON NORMALS: normocephalic and atraumatic HEAD & SCALP: n ormocephalic and atraumatic Eye: COMMON NORMALS: Equal, round and reactive pupils present and EOMs intact bilaterally PUPIL: Yes Equal, round and reactive pupils present Resp: COMMON NORMALS: clear to auscultation bilaterally AUSCULTATION: clear to auscultation bilaterally Cardio: COMMON NORMALS: regular rate, regular rhythm, S1 normal heart sound present and S2 normal heart sound present RATE: regular rate RHYTHM: r egular rhythm HEART SOUNDS: S1 normal heart sound present and S2 normal heart sound present GI: COMMON NORMALS: Soft to palpation, non-tender and no bruits PALPATION: Yes Soft to palpation Extremity: COMMON NORMALS: no clubbing, cyanosis or edema Psych: THOUGHT PROCESS: confused Urinary Catheter Management: Mora: Cath Placed During This Visit: yes Reason for Continuing Indwelling Catheter: Accurate Measurement of Urinary Output in Critically Ill Patients Urinary Catheter Date of Insertion: 07/16/25 Urinary Catheter Time of Insertion: 12:13 Data 07/17/25 08:58 07/17/25 08:58 Micro: Microbiology 07/16/25 11:21 Blood Culture - Preliminary Blood NEGATIVE TO DATE 07/16/25 13:41 Blood Culture - Preliminary Blood SPECIMEN COLLECTED A&P Assessment and plan 1. Hyperosmolar hyperglycemic state (HHS): 2. Altered mental status: 3. Elevated lactic acid level: Plan: 89 year old male presenting after being found down at home. HHS - Hyperglycemic hyperosmolar state DMII with hyperglycemia, not well controlled - recent prior A1c in March was 11.0, repeat this admission - cont. D5NS - home glargine is 9 units daily on chart - blood sugar low with current regimen - decrease glargine to 10 units qHS, lispro 3 w/ meals - SSI - adjust as necessary Hyponatremia - mild, cont. D5NS - improved this AM. Leukocytosis - no evidence of infection: UA clear - head CT negative - Abdomen/pelvis CT shows multiple renal lesions, per family, these are known lesions, present for years. - blood cultures NGTD - likely related to high blood sugars, monitor off antibiotics AMS Probable history of dementia Acute Metabolic encephalopathy 2/2 HHS - per family, he confused when his blood sugars get high. - somewhat more alert today, remains confused. Hypokalemai Hypophosphatemia - replete and recheck in AM. HLD - resume statin GERD - restart PPI HTN - hold home regimen for now for soft BPs. H/O Prostate CA in remission SSS, PPM in place, recent battery exchange Diet: CC when cleared Disposition - Full code - case mgmt for discharge planning - PT/OT PDMP PDMP Reviewed: Not Reviewed Attestations 2 Medical Necessity Statement*: ongoing inpatient treatment for HHS. Time Spent in Patient Care: 16 - 35 minutes (>than 50% of time sp ent in counselling and/or direct pt care on unit) . Coding Level of Care Code Acute Code for [facility] Diagnoses Hyperosmolar hyperglycemic state (HHS) E11.00 Altered mental status R41.82 Elevated lactic acid level R79.89
[2025-07-17] MEDS: potassium phosphate (mEq K) 40 MEQ in sodium chloride 0.9% (100 ml) 100 ML 27.25 MEQ IV (14:09)
[2025-07-17] MEDS: dextrose 5%-ns + KCl 20 20 MEQ/1,000 ML BAG 75 MEQ IV (14:09)
--- NOTE | 2025-07-17 16:40 | PC.OT ---
OT EVALUATION ATTEMPTED AGAIN IN P.M. ; PATIENT CONTINUES TO SLEEP SOUNDLY
[2025-07-17] MEDS: insulin glargine 100 units/1 mL 10 UNIT SUBCUT (21:39)
[2025-07-18] VITALS (52 sets, daily range): BP systolic 107–201; BP diastolic 54–116; PULSE 60–107; RESP 12–28; TEMP 36.5–37.1; O2SAT 93–98
[2025-07-18] MEDS: dextrose 5%-ns + KCl 20 20 MEQ/1,000 ML BAG 75 MEQ IV (03:29)
--- NOTE | 2025-07-18 03:47 | PC.NURSE ---
PO Medications Patient unable to follow complex commands such as swallowing. Speech language therapist recommends NPO at this time. Dr. Nevarez notified of inability to take PO medications this AM; order received to change PO protonix for 40 mg protonix IVP daily. Other medications non-administered.
[2025-07-18 04:18] LABS: Hematocrit 40.4 % (37-53); Hemoglobin 13.60 g/dL (11.27-16.99); Mean Corpuscular HGB Conc 33.7 g/dL (30-55); Mean Corpuscular Hemoglobin 30.0 pg (27-33); Mean Corpuscular Volume 89.2 fl (82-101); Nucleated Red Blood Cells % 0 %; Platelet Count 135 10^3/cmm (157-399); Red Blood Count 4.53 10^6/uL (3.85-5.65); White Blood Count 14.55 10^3/uL (3.29-11.43)
[2025-07-18 04:41] LABS: Anion Gap 15.7 (5-19); Blood Urea Nitrogen 15 mg/dL (8-23); Calcium 8.0 mg/dL (8.5-10.5); Carbon Dioxide 21 mmol/L (22-29); Chloride 110 mmol/L (98-107); Creatinine Clr Calc Pharmacy 41.4375; Glucose 126 mg/dL (65-115); Magnesium 1.8 mg/dL (1.7-2.3); Osmolality Calculated 298 mOsm/kg (285-295); Potassium 3.7 mmol/L (3.5-5.1); Sodium 143 mmol/L (136-145)
[2025-07-18] MEDS: pantoprazole 40 mg SDV IVP (04:48)
--- NOTE | 2025-07-18 07:13 | PC.NURSE ---
Sitter D/C'd Patient resting and calm. Dr. Nevarez notified of sitter order discontinuation.
[2025-07-18] MEDS: HYDROcodone-acetaminophen 5-325 mg Tablet 1 TAB PO (11:02)
--- NOTE | 2025-07-18 11:44 | PC.NURSE ---
Verbal order from Dr, Ibrahima to stop D5and KCL now that patient is having oral nutrition intake.
--- NOTE | 2025-07-18 14:56 | P.PN_ITS ---
Subjective 2 Subjective: more alert today, advanced diet. Vitals/I&O/Wt Last Vital Signs Temp 98.7 F 07/18/25 07:30 Pulse 68 07/18/25 12:00 Resp 20 H 07/18/25 12:00 BP 161/80 07/18/25 12:00 Pulse Ox 95 07/18/25 12:00 O2 Del Method Room Air 07/18/25 12:00 07/17/25 07/18/25 07/18/25 22:59 06:59 14:59 Intake Total 1000 / 3637.718 1112.75 / 1168.75 Output Total 450 / 450 425 / 875 Balance -450 / 364.583 575 / 011.036 7146.75 / 1168.75 Weight last 48 hrs Weight 57.5 kg Weight 57.5 kg Weight 58.5 kg Physical Exam 2 Narrative: Physical Exam Const: no acute distress and average body h abitus, somewhat c onfused HENMT: normocephalic and atraumatic Eye: EOMs intact bilate rally, Equal, roun d and reactive to light, right eyeli d twitching which is chronic. Resp: clear to auscultat ion bilaterally Cardio: regular rate, regu lar rhythm, S1/S2 normal, S1/S2 norm al GI: Soft to palpation, non-tender and no bruits Extremity: no clubbing, cyano sis or edema Psych: confused Urinary Catheter Management: Mora: Cath Placed During This Visit: yes Reason for Continuing Indwelling Catheter: Accurate Measurement of Urinary Output in Critically Ill Patients Urinary Catheter Date of Insertion: 07/16/25 Urinary Catheter Time of Insertion: 12:13 Data 07/18/25 03:13 07/18/25 03:13 Micro: Microbiology 07/16/25 13:41 Blood Culture - Preliminary Blood NEGATIVE TO DATE 07/16/25 11:21 Blood Culture - Preliminary Blood NEGATIVE TO DATE A&P Assessment and plan 1. Hyperosmolar hyperglycemic state (HHS): 2. Altered mental status: 3. Diabetes: Plan: 89 year old male presenting after being found down at home. HHS - Hyperglycemic hyperosmolar state DMII with hyperglycemia, not well controlled - recent prior A1c in March was 11.0, repeat this admission is 13.0 - cont. D5NS - home glargine is 9 units daily on chart - decrease glargine to 10 units qHS, lispro 3 w/ meals, improved control currently. - SSI - adjust as necessary Hyponatremia - mild, cont. D5NS - now in normal range. Leukocytosis - no evidence of infection: UA clear - head CT negative - Abdomen/pelvis CT shows multiple renal lesions, per family, these are known lesions, present for years. - blood cultures NGTD - likely related to high blood sugars, monitor off antibiotics - WBC continues to decrease AMS Probable history of dementia Acute Metabolic encephalopathy 2/2 HHS - per family, he confused when his blood sugars get high. - somewhat more alert today, remains confused. - right eyelid twitching is chronic, he has been getting periodic botox injections to control this. Hypokalemia Hypophosphatemia - replete and recheck in AM. HLD - resume statin GERD - restart PPI HTN - hold home regimen for now for soft BPs. H/O Prostate CA in remission SSS, PPM in place, recent battery exchange Diet: diet advanced to CC Disposition - Full code - case mgmt for discharge planning - PT/OT PDMP PDMP Reviewed: Not Reviewed Attestations 2 Medical Necessity Statement*: ongoing inpatient admission for HHS. Time Spent in Patient Care: 16 - 35 minutes (>than 50% of time sp ent in counselling and/or direct pt care on unit) . Coding Level of Care Code Acute Code for Chg Fwd Diagnoses Hyperosmolar hyperglycemic state (HHS) E11.00 Altered mental status R41.82 Diabetes E11.9
[2025-07-18] MEDS: insulin glargine 100 units/1 mL 10 UNIT SUBCUT (20:45)
[2025-07-19] VITALS (47 sets, daily range): BP systolic 139–189; BP diastolic 61–95; PULSE 60–98; RESP 13–27; TEMP 36.5–36.9; O2SAT 95–98
[2025-07-19 04:06] LABS: Hematocrit 39.0 % (37-53); Hemoglobin 13.00 g/dL (11.27-16.99); Mean Corpuscular HGB Conc 33.3 g/dL (30-55); Mean Corpuscular Hemoglobin 29.1 pg (27-33); Mean Corpuscular Volume 87.2 fl (82-101); Nucleated Red Blood Cells % 0 %; Platelet Count 148 10^3/cmm (157-399); Red Blood Count 4.47 10^6/uL (3.85-5.65); White Blood Count 11.46 10^3/uL (3.29-11.43)
[2025-07-19 04:25] LABS: Magnesium 1.7 mg/dL (1.7-2.3)
[2025-07-19 04:26] LABS: Anion Gap 13.3 (5-19); Blood Urea Nitrogen 16 mg/dL (8-23); Calcium 7.9 mg/dL (8.5-10.5); Carbon Dioxide 22 mmol/L (22-29); Chloride 109 mmol/L (98-107); Creatinine Clr Calc Pharmacy 40.7292; Glucose 175 mg/dL (65-115); Osmolality Calculated 297 mOsm/kg (285-295); Potassium 3.3 mmol/L (3.5-5.1); Sodium 141 mmol/L (136-145)
[2025-07-19 04:53] LABS: Slide Review Slide Review Perform
[2025-07-19] MEDS: ATORVASTATIN 20 MG TABLET PO (04:57)
[2025-07-19] MEDS: pantoprazole 40 mg SDV IVP (04:57)
[2025-07-19] MEDS: potassium chloride premix 100 ML 50 MEQ IV ×2 (10:50→13:22)
--- NOTE | 2025-07-19 13:51 | PC.SOCIAL ---
IMM UPDATED IMM dated and initialed, copy given to patient and placed in chart.
--- NOTE | 2025-07-19 15:17 | P.PN_ITS ---
Subjective 2 Subjective: More alert today Vitals/I&O/Wt Last Vital Signs Temp 98.5 F 07/19/25 10:30 Pulse 70 07/19/25 14:00 Resp 20 H 07/19/25 14:00 BP 163/78 07/19/25 11:00 Pulse Ox 96 07/19/25 07:30 O2 Del Method Room Air 07/19/25 01:30 07/19/25 07/19/25 07/19/25 06:59 14:59 22:59 Intake Total 480 / 1898.75 440 / 440 Output Total 1010 / 1460 Balance -530 / 438.75 440 / 440 Weight last 48 hrs Weight 59.5 kg Weight 57.5 kg Weight 57.5 kg Physical Exam 2 Narrative: Physical Exam Const: no acute distress and average body habitus, somewhat confused HENMT: normocephalic and atraumatic Eye: EOMs intact bilaterally, Equal, round and reactive to light, right eyelid twitching which is chronic. Resp: clear to auscultation bilaterally Cardio: regular rate, regular rhythm, S1/S2 normal, S1/S2 normal GI: Soft to palpation, non-tender and no bruits Extremity: no clubbing, cyanosis or edema Psych: confused Urinary Catheter Management: Mora: Cath Placed During This Visit: yes Reason for Continuing Indwelling Catheter: Accurate Measurement of Urinary Output in Critically Ill Patients Urinary Catheter Date of Insertion: 07/16/25 Urinary Catheter Time of Insertion: 12:13 Data 07/19/25 03:37 07/19/25 03:37 A&P Assessment and plan 1. Altered mental status: 2. Hyperosmolar hyperglycemic state (HHS): Plan: 89 year old male presenting after being found down at home. HHS - Hyperglycemic hyperosmolar state DMII with hyperglycemia, not well controlled - recent prior A1c in March was 11.0, repeat this admission is 13.0 - home glargine is 9 units daily on chart - decrease glargine to 10 units qHS, lispro 3 w/ meals, improved control currently. - SSI - adjust as necessary - diet now advanced and off fluids. Hyponatremia - now in normal range. Leukocytosis - no evidence of infection: UA clear - head CT negative - Abdomen/pelvis CT shows multiple renal lesions, per family, these are known lesions, present for years. - blood cultures NGTD - likely related to high blood sugars, monitor off antibiotics - WBC continues to decrease AMS Probable history of dementia Acute Metabolic encephalopathy 2/2 HHS - per family, he gets confused when his blood sugars get high. - more alert today, remains confused. - right eyelid twitching is chronic, he has been getting periodic botox injections to control this. Hypokalemia Hypophosphatemia - replete and recheck in AM. HLD - resume statin GERD - restart PPI HTN - hold home regimen for now for soft BPs. H/O Prostate CA in remission SSS, PPM in place, recent battery exchange Diet: diet advanced to CC Disposition - Full code - case mgmt for discharge planning, family is deciding on placement options. Currently lives home alone. Likely needs higher level of care. - PT/OT PDMP PDMP Reviewed: Not Reviewed Attestations 2 Medical Necessity Statement*: ongoing inpatient for HHS Time Spent in Patient Care: 16 - 35 minutes (>than 50% of time sp ent in counselling and/or direct pt care on unit) . Coding Level of Care Code Acute Code for Chg Fwd Diagnoses Altered mental status R41.82 Hyperosmolar hyperglycemic state (HHS) E11.00
--- NOTE | 2025-07-19 16:14 | PC.OT ---
Pt. stated he did not need any assistance at this time. OT to attempt at a later time.
[2025-07-19] MEDS: hyDRALAzine 20 mg/mL INJ 1 mL 10 MG IVP ×2 (17:16→23:54)
[2025-07-19] MEDS: insulin glargine 100 units/1 mL 10 UNIT SUBCUT (20:44)
[2025-07-19] MEDS: HYDROcodone-acetaminophen 5-325 mg Tablet 1 TAB PO (23:09)
[2025-07-20] VITALS (18 sets, daily range): BP systolic 91–170; BP diastolic 48–82; PULSE 63–89; RESP 14–22; TEMP 36.9–37.1; O2SAT 94–98
[2025-07-20] MEDS: pantoprazole 40 mg SDV IVP (05:32)
[2025-07-20] MEDS: ATORVASTATIN 20 MG TABLET PO (05:32)
[2025-07-20 11:12] LABS: Hematocrit 44.9 % (37-53); Hemoglobin 14.20 g/dL (11.27-16.99); Mean Corpuscular HGB Conc 31.6 g/dL (30-55); Mean Corpuscular Hemoglobin 29.3 pg (27-33); Mean Corpuscular Volume 92.8 fl (82-101); Nucleated Red Blood Cells % 0 %; Platelet Count 165 10^3/cmm (157-399); Red Blood Count 4.84 10^6/uL (3.85-5.65); White Blood Count 17.32 10^3/uL (3.29-11.43)
--- NOTE | 2025-07-20 11:17 | P.DS_ITS ---
Discharge Providers Date of Admission: 07/16/25 13:41 Date of Discharge: July 20, 2025 Attending Provider at Admission: Allen Alexandra MD Attending Provider at Discharge: Allen Alexandra MD Primary Care Provider: Jorge Mortensen MD Diagnoses at Discharge Discharge Diagnosis 1. Altered mental status: 2. Hyperosmolar hyperglycemic state (HHS): Reason for Visit Reason for Visit: AMS, HIGH BS Brief History: 89 year old male presenting after being found down at home. Hospital Course Hospital Course HHS - Hyperglycemic hyperosmolar state DMII with hyperglycemia, not well controlled - recent prior A1c in March was 11.0, repeat this admission is 13.0 - home glargine is 9 units daily on chart - decrease glargine to 10 units qHS, lispro 3 w/ meals, improved control currently. - SSI - adjust as necessary - diet now advanced and off fluids. Hyponatremia - now in normal range. Leukocytosis - no evidence of infection: UA clear - head CT negative - Abdomen/pelvis CT shows multiple renal lesions, per family, these are known lesions, present for years. - blood cultures NGTD - likely related to high blood sugars - WBC elevated some today, can give short course of empiric abx on D/C, however acute infection remains unlikely. AMS Probable history of dementia Acute Metabolic encephalopathy 2/2 HHS - per family, he gets confused when his blood sugars get high. - more alert today, remains confused. - right eyelid twitching is chronic, he has been getting periodic botox injections to control this. Hypokalemia Hypophosphatemia - replete and recheck in AM. HLD - resume statin GERD - restart PPI HTN - hold home regimen for now for soft BPs. H/O Prostate CA in remission SSS, PPM in place, recent battery exchange Diet: diet advanced to CC Disposition - Full code - case mgmt for discharge planning, Patient currently lives home alone. Likely needs higher level of care going forward. Discharge planning for SNF for today when accepted. - PT/OT Physical Exam Narrative: Physical Exam Const: no acute distress and average body habitus, somewhat confused HENMT: normocephalic and atraumatic Eye: EOMs intact bilaterally, Equal, round and reactive to light, right eyelid twitching which is chronic. Resp: clear to auscultation bilaterally Cardio: regular rate, regular rhythm, S1/S2 normal, S1/S2 normal GI: Soft to palpation, non-tender and no bruits Extremity: no clubbing, cyanosis or edema Psych: confused Urinary Catheter Management: Mora: Cath Placed During This Visit: yes Reason for Continuing Indwelling Catheter: Accurate Measurement of Urinary Output in Critically Ill Patients Urinary Catheter Date of Insertion: 07/16/25 Urinary Catheter Time of Insertion: 12:13 Discharge Data Studies Completed and Pending Completed Studies During Hospitalization Category Date Time Status CT abdomen pelvis wo con [id number] Stat Cat Scan 07/16/25 12:[address] head wo con* [id number] Stat Cat Scan 07/16/25 11:10 Completed Pending at discharge Category Date Time Status BMP [Basic Metabolic Panel] Routine Lab 07/20/25 10:41 Received Blood Culture Stat Lab 07/16/25 13:41 Results Radiology Impressions Head CT 07/16/25 11:10 IMPRESSION: 1. No evidence of intracranial hemorrhage or mass effect. 2. No acute intracranial findings. Notified Jim Resendez DO at 07/16/2025 12:49 PM. Abdomen/Pelvis CT 07/16/25 12:48 IMPRESSION: 1. Multiple bilateral solid-appearing renal lesions increased in size since 2012 largest solid lesion on the LEFT measuring 3.6 x 3.6 cm suspicious for neoplasm. Additional smaller solid-appearing RIGHT renal lesions the largest measuring 2.2 cm also suspicious for neoplasm and increased compared to previous studies. 2. Peripherally calcified large complex cystic lesion in the RIGHT kidney also increased in size now with internal increased attenuation peripheral nodularity suspicious for cystic neoplasm. Recommend urology consultation this lesion is similar to the prior ultrasound in 2019 but increased since 2012 3. Mora catheter. 4. Prior prostatectomy. 5. No other acute abdominal findings. Laboratory Results WBC 17.32 10^3/uL (3.29-11.43) H 07/20/25 10:41 RBC 4.84 10^6/uL (3.85-5.65) 07/20/25 10:41 Hgb 14.20 g/dL (11.27-16.99) 07/20/25 10:41 Hct 44.9 % (37-53) 07/20/25 10:41 MCV 92.8 fl (82-101) 07/20/25 10:41 MCH 29.3 pg (27-33) 07/20/25 10:41 MCHC 31.6 g/dL (30-55) 07/20/25 10:41 RDW 13.2 % (12.1-15.1) 07/20/25 10:41 Plt Count 165 10^3/cmm (157-399) 07/20/25 10:41 MPV 10.8 fL (7.4-10.4) H 07/20/25 10:41 Neut % (Auto) 63.7 % 07/20/25 10:41 Lymph % (Auto) 26.7 % 07/20/25 10:41 [place] % (Auto) 7.9 % 07/20/25 10:41 Eos % (Auto) 0.8 % 07/20/25 10:41 Baso % (Auto) 0.3 % 07/20/25 10:41 Neut # (Auto) 11.04 10^3/uL (1.8-7.7) H 07/20/25 10:41 Lymph # (Auto) 4.6 10^3/uL (0.8-4.8) 07/20/25 10:41 [place] # (Auto) 1.4 10^3/uL (0.2-0.9) H 07/20/25 10:41 Eos # (Auto) 0.1 10^3/uL (0.0-0.8) 07/20/25 10:41 Baso # (Auto) 0.1 10^3/uL (0.0-0.1) 07/20/25 10:41 Nucleated RBC % (auto) 0 % 07/20/25 10:41 Nucleated RBCs # 0.0 /100WBC 07/20/25 10:41 Specimen Type Arterial 07/16/25 11:26 Sample Site Brachial, right 07/16/25 11:26 ABG pH 7.44 (7.35-7.45) 07/16/25 11: ABG pCO2 35.3 mmHg (35-45) 07/16/25 11: ABG pO2 71.5 mmHg (80.0-100.0) L 07/16/25 11: ABG PO2/FiO2 Ratio 340 07/16/25 11: ABG HCO3 23.9 mmol/L (22-26) 07/16/25 11: ABG O2 Saturation 93.6 07/16/25 11:26 ABG Base Excess 0.2 mmol/L (-2.0-2.0) 07/16/25 11:26 Zain Test N/a 07/16/25 11:26 A-a O2 Gradient 4.5 mmHg (5-10) L 07/16/25 11:26 Hematocrit 43.7 % (42-52) 07/16/25 11:26 Hgb O2 Saturation 92.6 % (95-100) L 07/16/25 11:26 Carboxyhemoglobin < 0.3 %THgb (0.4-20.1) L 07/16/25 11:26 Methemoglobin 1.1 % (0.4-1.5) 07/16/25 11:26 Total Hemoglobin 14.3 g/dL (14-18) 07/16/25 11:26 Sodium 135.0 mmol/L (131-143) 07/16/25 11:26 Potassium 4.1 mmol/L (3.5-5.0) 07/16/25 11:26 Glucose 483.0 mg/dL (70-115) H 07/16/25 11:26 Ionized Calcium 1.2 mmol/L (1.1-1.4) 07/16/25 11:26 O2 Delivery Device None 07/16/25 11:26 FiO2 21.0 % 07/16/25 11:26 Mineral Engineer ID Broma 07/16/25 11:26 Sodium 141 mmol/L (136-145) 07/19/25 03:37 Potassium 3.3 mmol/L (3.5-5.1) L 07/19/25 03:37 Chloride 109 mmol/L (98-107) H 07/19/25 03:37 Carbon Dioxide 22 mmol/L (22-29) 07/19/25 03:37 Anion Gap 13.3 (5-19) 07/19/25 03:37 BUN 16 mg/dL (8-23) 07/19/25 03:37 Creatinine 1.0 mg/dL (0.7-1.2) 07/19/25 03:37 GFR Calculation Not Reportable 07/19/25 03:37 Glucose 175 mg/dL (65-115) H 07/19/25 03:37 POC Glucose 216 mg/dL (70-110) H 07/20/25 11:03 Estimat Average Glucose 326 07/17/25 08:58 Hemoglobin A1c 13.0 % (4.0-6.0) H 07/17/25 08:58 Calculated Osmolality 297 mOsm/kg (285-295) H 07/19/25 03:37 Lactic Acid 2.4 mmol/L (0.5-2.2) H 07/16/25 11:21 Lactic Acid (Sepsis) 3.3 mmol/L (0.5-2.2) H 07/16/25 13:41 Calcium 7.9 mg/dL (8.5-10.5) L 07/19/25 03:37 Phosphorus 2.9 mg/dL (2.5-4.5) 07/19/25 03:37 Magnesium 1.7 mg/dL (1.7-2.3) 07/19/25 03:37 Total Bilirubin 0.6 mg/dL (0.15-1.2) 07/17/25 08:58 AST 21 U/L (0-40) 07/17/25 08:58 ALT 13 U/L (0-41) 07/17/25 08:58 Alkaline Phosphatase 59 U/L (40-130) 07/17/25 08:58 Creatine Kinase 95 U/L (39-308) 07/16/25 11:21 Total Protein 5.9 g/dL (6.6-8.7) L D 07/17/25 08:58 Albumin 3.7 g/dL (3.5-5.2) 07/17/25 08:58 Globulin 2.2 g/dL (1.3-4.6) 07/17/25 08:58 Lipase 35 U/L (13-60) 07/16/25 11:21 Urine Color Yellow (Yellow) 07/16/25 12:20 Urine Appearance Clear (CLEAR) 07/16/25 12:20 Urine pH 5.5 (5-7) 07/16/25 12:20 Ur Specific [place] 1.037 (1.005-1.030) H 07/16/25 12:20 Urine Protein Negative (Negative) 07/16/25 12:20 Urine Glucose (UA) 3+ (Normal) H 07/16/25 12:20 Urine Ketones 1+ (Negative) H 07/16/25 12:20 Urine Blood Non-haemolysed trace (Negative) 07/16/25 12:20 Urine Nitrate Negative (Negative) 07/16/25 12:20 Urine Bilirubin Negative (Negative) 07/16/25 12:20 Urine Urobilinogen 0.2 mg/dL (Negative) 07/16/25 12:20 Ur Leukocyte Esterase Negative (Negative) 07/16/25 12:20 Urine RBC None /hpf (0-2) 07/16/25 12:20 Urine WBC None /hpf (0-5) 07/16/25 12:20 Ur Squamous Epith Cells None /hpf (0-5) 07/16/25 12:20 Amorphous Sediment Not Reportable 07/16/25 12:20 Urine Bacteria None /hpf (NONE) 07/16/25 12:20 Urine Mucus None /hpf 07/16/25 12:20 Serum Ketones Negative (Negative) 07/16/25 11:21 Influenza A (PCR) Negative (Negative) 07/16/25 11:36 Influenza Type B (PCR) Negative (Negative) 07/16/25 11:36 RSV (PCR) Negative (Negative) 07/16/25 11:36 SARS-CoV-2 (PCR) Negative (Negative) 07/16/25 11:36 Vitals Last Vital Signs Temp 98.8 F 07/20/25 07:00 Pulse 89 07/20/25 10:00 Resp 20 H 07/20/25 10:00 BP 115/63 07/20/25 10:00 Pulse Ox 96 07/20/25 10:00 O2 Del Method Room Air 07/20/25 10:00 Discharge Plan Discharge Patient Disposition: Xfer SNF Condition: Stable Prescriptions: New cefdinir 300 mg capsule 300 mg PO BID 10 Days Qty: 20 0RF Continued omeprazole 20 mg capsule,delayed release(DR/EC) 20 mg PO DAILY garlic 1,000 mg capsule 1,000 mg PO DAILY calcium carbonate 600 mg calcium (1,500 mg) tablet 600 mg PO DAILY Intrinsi [id number] 500-20-800 mcg-mg-mcg tablet 1 tab PO DAILY spironolacton-hydrochlorothiaz 25-25 mg tablet 1 tab PO QAM alpha lipoic acid 200 mg capsule 200 mg PO DAILY simvastatin 10 mg tablet 10 mg PO DAILY Qty: 90 0RF Patient Comments: Patient's son states he stopped this medication (DME) pen needle, diabetic [Comfort EZ Pen [place]] 31 gauge x 5/16 needle See Rx Instructions .Route Qty: 100 1RF Rx Instructions: As directed (DME) FreeStyle [place]arco 3 Sensor Device See Rx Instructions .Route Qty: 6 1RF Rx Instructions: change sensor every 14 days acarbose 100 mg tablet See Rx Instructions .ROUTE .COMPLEX Qty: 90 0RF Dose Instruction: TAKE 1 TABLET BY MOUTH THREE TIMES DAILY BEFORE MEAL(S) Rx Instructions: TAKE 1 TABLET BY MOUTH THREE TIMES DAILY BEFORE MEAL(S) aspirin 81 mg Capsule 81 mg PO DAILY insulin glargine [Lantus Solostar U-100 Insulin] 100 unit/mL (3 mL) insulin pen 9 unit SUBCUT DAILY multivitamin [Hair,Nails and Skin Vitamin] Tablet 1 tab PO QAM Referrals: Jorge Mortensen MD [Primary Care Provider, Family Practice] Discharge Attestations Time Spent in Discharge Care*: greater than 30 min Specific Discharge Activities: educating patient, educating and/or supporting family/caregiver, discussing with pcp/other providers, discussing with nurse outreach case manager/social workers/dc planners, documenting/other paperwork and evaluating patient/reviewing data Quality Metrics Clinical Quality Measures [ No reported AMI, CVA or VTE this stay] Coding Level of Care Code Acute Code for Chg Fwd Diagnoses Altered mental status R41.82 Hyperosmolar hyperglycemic state (HHS) E11.00
[2025-07-20 11:20] LABS: Anion Gap 19.0 (5-19); Blood Urea Nitrogen 13 mg/dL (8-23); Calcium 8.6 mg/dL (8.5-10.5); Carbon Dioxide 19 mmol/L (22-29); Chloride 105 mmol/L (98-107); Creatinine Clr Calc Pharmacy 46.4352; Glucose 226 mg/dL (65-115); Osmolality Calculated 295 mOsm/kg (285-295); Potassium 4.0 mmol/L (3.5-5.1); Sodium 139 mmol/L (136-145)
--- NOTE | 2025-07-20 15:20 | PC.NURSE ---
Patient in care of [facility] at the time of this note. Patient family is at bedside, gathered all belongings and sent with patient. [facility] No questions at the time of discharge or at the time of report.
== END 2025-07-20 15:23 | disposition skilled nursing facility (03) | DRG 637 ==
LOC: ER 13:03 → ICU 13:44
PROVIDERS: Admitting Provider Internal Medicine; Emergency Provider Family Medicine; PCP Family Medicine; Visit Provider Internal Medicine
DX: E11.00 Type 2 diabetes mellitus with hyperosmolarity without nonketotic hyperglycemic-hyperosmolar coma (NKHHC) (principal); G93.41 Metabolic encephalopathy; E87.1 Hypo-osmolality and hyponatremia; F03.90 Unspecified dementia, unspecified severity, without behavioral disturbance, psychotic disturbance, mood disturbance, and anxiety; E87.6 Hypokalemia; E83.39 Other disorders of phosphorus metabolism; E78.5 Hyperlipidemia, unspecified; K21.9 Gastro-esophageal reflux disease without esophagitis; I10 Essential (primary) hypertension; I49.5 Sick sinus syndrome; G47.30 Sleep apnea, unspecified; Z79.82 Long term (current) use of aspirin; Z79.4 Long term (current) use of insulin; Z95.0 Presence of cardiac pacemaker; Z85.46 Personal history of malignant neoplasm of prostate; Z87.891 Personal history of nicotine dependence; Z87.11 Personal history of peptic ulcer disease
CPT/HCPCS: 36415; 36416; 36591; 36600; 51702; 70450; 74176; 80048; 80051; 80053; 81001; 82009; 82330; 82550; 82805; 82962; 83036; 83605; 83690; 83735; 84100; 85025; 87040; 87637; 92507; 92523; 92526; 92610; 93005; 96365; 96372; 96375; 97116; 97163; 97167; 97535; 99285; J0360; J1630; J1650; J1815; J2060; J2470; J2543; J3480; J7030; J9999

== ENCOUNTER → 2025-08-14 10:17 | Outpatient (BNVA) | payer MEDICARE, OTHER, SELFPAY | PROVIDERS: PCP Family Medicine; Visit Provider Internal Medicine Cardiovascular Disease | DX: Z45.018 Encounter for adjustment and management of other part of cardiac pacemaker (principal) | CPT/HCPCS: 93296 ==